=== PATIENT | female | born 1955 ===

== ENCOUNTER 2025-03-08 13:02 | Outpatient (AMB) | payer MEDICARE, MEDICAID, SELFPAY ==
--- OUTSIDE RECORDS SUMMARY | 2025-03-08 13:07 | XMS_ITS | Clinical Summary ---
Author Organization [employer] Address [address] [facility] [address] [place] [address] Care Team Providers Care Car Hostler Name Role Phone Hina Knutson Unavailable Kevin Brown LLD Unavailable [phone] Unavailable Mihai Bustamante MD Primary Care Provider Allergies Active Allergy Reactions Criticality Noted Date Comments Codeine Itching 10/14/2022 Levofloxacin Itching 07/12/2020 sulfa Levaquin Molds & Smuts 08/12/2022 Omeprazole 04/15/2023 Other reaction(s): Mental status/ memory changes Promethazine Other High 07/12/2020 Other reaction(s): Phlebitis Other Reaction(s): Phlebitis Phenergan Phlebitits Seems to be IV only Psyllium Diarrhea 07/12/2020 Metamucil Sulfa Antibiotics Shortness of breath High 0 Other Reaction(s): Hives/Urticaria Medications lamoTRIgine (LaMICtal) 200 MG tablet Take 200 mg by mouth in the morning and 200 mg in the evening. Active aspirin 81 MG EC tablet Take 81 mg by mouth. Active clonazePAM (KlonoPIN) 0.5 MG tablet Take 0.5 mg by mouth in the morning and 0.5 mg in the evening. Active clonazePAM (KlonoPIN) 1 MG tablet 023 Active Riboflavin 400 MG capsule Take 400 mg by mouth in the morning. 023 Active traZODone (Desyrel) 100 MG tablet Active cyanocobalamin (Vitamin B-12) 100 MCG tablet Take 1 tablet by mouth in the morning and 1 tablet at noon and 1 tablet in the evening. Active Banophen 25 MG tablet Take 1 tablet (25 mg) by mouth if needed at bedtime for itching. 30 tablet 023 Active cholecalciferol (Vitamin D-3) 10 MCG (400 UNIT) capsule Take 1 capsule (10 mcg) by mouth in the morning. 30 capsule 11 023 Active ziprasidone (Geodon) 20 MG capsule Take 20 mg by mouth with breakfast and with evening meal. Active magnesium gluconate (Magonate) 500 MG tablet Take 1 tablet (500 mg) by mouth 3 times daily. Hold for diarrhea 90 tablet 11 Active traMADol (Ultram) 50 MG tablet Take 100 mg by mouth as needed in the morning for moderate pain. Active pramipexole (Mirapex) 0.25 MG tablet TAKE 1 & 1/2 TABLETS BY MOUTH DAILY 45 tablet Active pyridoxine (Vitamin B-6) 100 MG tablet Take 0.5 tablets (50 mg) by mouth in the morning. 60 tablet 024 Active Calcium Citrate-Vitamin D (Rapides Calcium/Vitamin D) 200-6.25 MG-MCG tablet TAKE 2 TABLETS BY MOUTH TWICE A DAY 120 tablet Active omeprazole (PriLOSEC) [address] capsuleIndicatio ns:Calculus of gallbladder without cholecystitis without obstruction Take 1 capsule (20 mg) by mouth before breakfast and before evening meal. Do not crush or chew. 60 capsule 11 024 2024 Active tiZANidine (Zanaflex) 4 MG tablet Take 1 tablet (4 mg) by mouth every 8 (eight) hours if needed for muscle spasms (Use with caution, sedating.). 90 tablet 3 024 Active aspirin-acetamin ophen-caffeine (Excedrin Migraine) 250-250-65 MG tabletIndication s:Chronic migraine without aura without status migrainosus, not intractable Take 1-2 tablets by mouth if needed each day for headaches. Max 2 tabs/24 hours. Max 20 tabs/month. 60 tablet 3 024 Active propranolol LA (Inderal LA) 80 MG 24 hr capsuleIndicatio ns:Bipolar 1 disorder (CMS/HCC) Take 1 capsule (80 mg) by mouth 2 times daily. Do not crush, chew, or split. 60 capsule 11 024 2024 Active SUMAtriptan (Imitrex) 6 MG/0.5ML injectionIndicat ions:Chronic migraine without aura without status migrainosus, not intractable Inject 0.5 mL (6 mg) under the skin if needed for migraine. If symptoms persist or return, may repeat dose after 1 hour. Max 2 doses/24 hours, 8 doses/month. Use sparingly. 8 mL 3 025 Active promethazine (Phenergan) 25 MG tabletIndication s:Chronic nausea TAKE ONE TABLET BY MOUTH TWO TIMES A DAY NEEDED FOR NAUSEA OR VOMITING. USE SPARINGLY. DO NOT USE FOR LONGER THAN 48 HOURS AT A TIME 45 tablet 3 025 Active scopolamine (Transderm-Scop) 1 MG/3DAYS patch 72 hour APPLY 1 PATCH TO THE SKIN EVERY 3 DAYS (BULK) 10 patch 3 025 Active venlafaxine XR (Effexor XR) 37.5 MG 24 hr capsule Take 37.5 mg by mouth Once per day. 025 Active Blood Glucose Monitoring Suppl (FreeStyle Lite) deviceIndication s:Type 2 diabetes mellitus with diabetic polyneuropathy, without long-term current use of insulin (CMS/HCC) Inject 1 each under the skin 2 times daily. 1 each 025 Active FREESTYLE LITE test stripIndications :Type 2 diabetes mellitus with diabetic polyneuropathy, without long-term current use of insulin (CMS/HCC) Test BG before and 2 hours after one meal per day, alternating meal. 100 each 025 Active FreeStyle Unistick II Lancets miscIndications: Type 2 diabetes mellitus with diabetic polyneuropathy, without long-term current use of insulin (CMS/HCC) Test before and 2 hours after one meal per day, alternating the meal. 100 each 025 Active levothyroxine (Synthroid, Levoxyl) 150 MCG tabletIndication s:Hypothyroidism , unspecified type Take 1 tablet (150 mcg) by mouth before breakfast. 90 tablet 3 025 2025 Active albuterol 108 (90 Base) MCG/ACT inhalerIndicatio ns:Chronic cough Inhale 2 puffs every 6 (six) hours if needed for wheezing. 18 g 11 025 2025 Active cetirizine (ZyrTEC) 10 MG tablet Take 1.5 tablets (15 mg) by mouth Once per day. 45 tablet 2 Active famotidine (Pepcid) 20 MG tablet Take 1 tablet by mouth at bedtime. Active Methylcobalamin 5000 MCG chewable tabletIndication s:IGT (impaired glucose tolerance) Chew 5,000 mcg Once per day. 90 tablet Active vitamin E 180 MG (400 UNIT) capsule TAKE ONE CAPSULE BY MOUTH THREE TIMES A DAY (VIAL) 84 capsule Active ondansetron (Zofran) 4 MG tablet TAKE ONE TABLET BY MOUTH EVERY 8 HOURS NEEDED FOR NAUSEA OR VOMITING FOR UP TO 7 DAYS (VIAL) 20 tablet Active Ascorbic Acid (vitamin C) 500 MG tabletIndication s:Lack of adequate food TAKE 1 TABLET BY MOUTH 3 TIMES A DAY (VIAL) 84 tablet Active Diclofenac Sodium 1 % gelIndications:S lesvia stenosis, unspecified spinal region Apply 4 g topically 4 times daily. Dispense four tubes 350 g Active montelukast (Singulair) 10 MG tabletIndication s:Allergy, sequela TAKE ONE TABLET BY MOUTH EVERY DAY (VIAL) 30 tablet Active lidocaine (Lidoderm) 5 % patchIndications :Type 2 diabetes mellitus with diabetic polyneuropathy, without long-term current use of insulin ([facility]) APPLY 1 PATCH TOPICALLY ONCE PER DAY. REMOVE AND DISCARD PATCH WITHIN 12 HOURS OR DIRECTED BY 30 patch Active acyclovir (Zovirax) 400 MG tablet TAKE ONE TABLET BY MOUTH TWICE A DAY (VIAL) 60 tablet 3 Active potassium chloride CR (Klor-Con M10) 10 MEQ ER tablet TAKE ONE TABLET BY MOUTH EVERY MORNING (VIAL) 30 tablet 025 Active methylPREDNISolo ne (Medrol Dospak) 4 MG tabletsIndicatio ns:Sprain of right shoulder, unspecified shoulder sprain type, initial encounter Follow schedule on package instructions 21 tablet 025 Active furosemide (Lasix) 20 MG tabletIndication s:Lower extremity edema Take 1 tablet (20 mg) by mouth Once per day for 7 days. 7 tablet 025 Active B Complex-C (b complex-vitamin c) tablet Take 1 tablet by mouth Once per day. Active cholestyramine (Questran) 4 g packet Take 1 packet by mouth with breakfast, with lunch, and with evening meal. Active Colchicine 0.6 MG capsule 1 CAPSULE BY MOUTH DAILY UNTIL ACUTE GOUT FLARE RESOLVES 025 Active colesevelam (Welchol) 625 MG tablet 025 Active spironolactone (Aldactone) 25 MG tabletIndication s:Essential (primary) hypertension TAKE THREE TABLETS BY MOUTH EVERY DAY (VIAL) 90 tablet 3 025 Active Multiple Vitamins-Iron (Tab-A-Flaco/Iron ) tablet TAKE ONE TABLET BY MOUTH EVERY DAY (VIAL) 30 tablet 3 025 Active capsaicin (Zostrix) 0.025 % creamIndications :Spinal stenosis, unspecified spinal region Apply thin film to affected areas 3 to 4 times daily 56.6 g 1 025 Active spironolactone (Aldactone) 25 MG tabletIndication s:Essential (primary) hypertension TAKE THREE TABLETS BY MOUTH EVERY DAY (VIAL) 90 tablet 3 025 2024 Discontinued Multiple Vitamins-Iron (Tab-A-Flaco/Iron ) tablet Take 1 tablet by mouth Once per day. 30 tablet 3 025 2024 Discontinued benzonatate (Tessalon) 100 MG capsule Take 1 capsule (100 mg) by mouth if needed in the morning, at noon, and at bedtime for cough for up to 40 doses. Do not crush or chew. 20 capsule 1 025 2024 Discontinued(D ose adjustment) benzonatate (Tessalon) 200 MG capsuleIndicatio ns:Cough, unspecified type Take 1 capsule (200 mg) by mouth if needed in the morning, at noon, and at bedtime for cough for up to 7 days. Do not crush or chew. 20 capsule 025 2024 Discontinued(R eorder (will not trigger notification to Pharmacy)) benzonatate (Tessalon) 200 MG capsuleIndicatio ns:Cough, unspecified type Take 1 capsule (200 mg) by mouth if needed in the morning, at noon, and at bedtime for cough for up to 7 days. Do not crush or chew. 20 capsule 025 2024 Active Problems Problem Noted Date Diagnosed Date Peripheral edema 02/22/2025 Overview (02/22/2025): ECHO 10/2024: The left ventricular size is normal. The left ventricular wall thickness is mildly increased. The LV systolic function is vigorous . The left ventricular ejection fraction is 70-75%. There are no regional wall motion abnormalities. Normal diastolic function. The right ventricle is normal in size and function. The pulmonary artery systolic pressure estimation is within normal limits. US Doppler Ext Lower Venous Bilat 01/26/25 IMPRESSION: No evidence of deep venous thrombosis. Assessment & Plan (02/22/2025 4:44 PM EDT): Patient with bilateral peripheral edema, recently worsening over the past three weeks. Physical exam significant for 2+ peripheral edema in bilateral lower extremities. Possibly peripheral edema from known kidney disease, also possibly CVS. Less likely CHF recent ECHO only significant for mild increase in left ventricular thickness. Also less likely liver disease since normal lfts during recent hospital visit. Discussed conservative management including leg elevation and compression stockings; however patient strongly prefers not to use compression stockings due fibromyalgia and discomfort. Patient is currently on diuretic therapy, unfortunately, patient does have evidence of ongoing hyponatremia. - Will obtain updated CMP and TSH - Will order Venous duplex ultrasound to investigate CVS - Will continue with leg elevation, can consider lower pressure compression stockings that patient can tolerate - Suggesting discontinuing the Lasix at this time due to the ongoing hyponatremia Spinal stenosis 02/22/2025 Overview (02/22/2025): MRI lumbar spine 04/11/24: degenerative changes are most pronounced at L5-S1, with progression of disc space narrowing at this level since 2020. There is mild canal stenosis at this level as well as narrowing of both neural foramen, right worse than left. Mild disc space narrowing is also seen at L4-5. Assessment & Plan (02/22/2025 4:57 PM EDT): Patient reports ongoing lower back and BLE discomfort. Patient is in the process of becoming established with pain medicine and has follow up appointment scheduled with [facility]. Patient is advised not to take NSAIDs secondary to CKD. Also discussed avoidance of any other [employer] depressants like Gabapentin due to polypharmacy. Patient is established with psychiatry provider, recently increased venlafaxine, which we discussed can be helpful for neuropathic pain. - Will also send in topical capsaicin - Continue plan to see [facility] Diarrhea 01/25/2025 Excessive daytime sleepiness 01/25/2025 Nausea 01/25/2025 RUQ pain 01/25/2025 Gout 01/25/2025 Hypo-osmolality and hyponatremia 01/23/2025 Overview (02/22/2025): Past three recent CMP demonstrated Na levels around 130. Based upon recent BUN and glucose, serum osm 273 mOsm/kg Assessment & Plan (02/22/2025 4:50 PM EDT): Patient is on multiple medications including furosemide, spironolactone and venlafaxine that could lead to hypnoatremia. Discussed in detail sxs of hyponatremia including nausea, vomiting, headache, confusion, and other cognitive defects. Patient reports she has been on diuretic therapy due to ongoing peripheral edema. - Consider trial of stopping Lasix and monitor sodium levels. - If sodium does not improve, consider stopping spironolactone. - No signs of hypovolemia, if sodium levels remain low, would suggest obtaining urine sodium and urine osmolality Counseling on health care directive 05/31/2024 Assessment & Plan (06/13/2024 6:17 PM EDT): - Previous healthcare form proxy completed by patient, myself and nursing staff. Today in office, we reviewed in detail MOLST form and completed it according to patient's wishes and goals. Discussed in detail that patient should share these goals with HCP. Discussed in detail the process of changing a MOLST form in the event their values or goals change. Patient expressed understanding and is in agreement with plan Assessment & Plan (05/31/2024 3:36 PM EDT): - Patient presented a healthcare proxy form for signing, which was completed by patient, myself and one of the nursing staff. - Patient had question regarding end of life goals. Reviewed in detail MOLST form. Provided for patient to review at home with herself and health care proxy. Will review together and complete together at a later date. Disassociation 01/06/2024 Assessment & Plan (01/06/2024 1:58 PM EDT): Patient reports episodes of disassociation most recently on 12/29/23. Patient is currently established with psychiatry, sleep medicine, neurology and therapy. Physical exam benign, no neurological deficits. Uncertain if this is organic, psychiatric, sleep disorder or polypharmacy cause. Consulted patient to follow up immediately with psychiatry and neurology for further evaluation. - Will continue to monitor Microalbuminuria 10/06/2023 Severe episode of recurrent major depressive disorder, with psychotic features 08/05/2023 Assessment & Plan (05/31/2024 3:39 PM EDT): - Patient established wit psychiatry, reports recent increase in panic attacks in the past two weeks, has discontinued trazodone to see if effective. - Will continue to follow with psych. Assessment & Plan (08/05/2023 1:14 PM EST): Encouraged to continue to follow up with her psychiatrist. She understood and agreed. Chronic pain of both feet 04/20/2023 Assessment & Plan (04/20/2023 3:57 PM EDT): We discussed how her pain is not likely to be gout and how colchicine would not help her. She will continue to follow up with her documentation writer. Bipolar disorder 04/15/2023 Overview (01/06/2024): with PTSD - sees Dr. Jerome Kaur at [facility] and therapist uli luo weekly. 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 Lau, sleep medicine Assessment & Plan (01/06/2024 1:04 PM EDT): Patient has previously been using CPAP, has not used in over a year. - Not currently interested in restarting CPAP. Occipital neuralgia 04/15/2023 Parasomnia 04/15/2023 Pulmonary nodules 04/15/2023 Restless legs syndrome 04/15/2023 Hair loss disorder 03/12/2023 Assessment & Plan (03/22/2023 3:25 PM EDT): Chronic, stable. Likely multifactorial - labs previously ordered to assess thyroid, vitamins/minerals, awaiting results. Deferring treatment at this time until clearer sense of cause. Current mild episode of leeroy r depressive disorder without prior episode 03/12/2023 Vitamin C deficiency 03/12/2023 Lack of adequate food 03/12/2023 Chronic tension-type headache, not intractable 0 12/25/2022 Apnea 12/25/2022 Forgetfulness 12/25/2022 Hoarseness, persistent 11/27/2022 Chronic cough 11/27/2022 Assessment & Plan (08/05/2023 1:12 PM EST): Continue with current regimen. Cystitis 11/24/2022 Urine frequency 11/24/2022 Dental caries 09/07/2022 Anemia 08/12/2022 Calculus of kidney 08/12/2022 Secondary hyperparathyroidism of renal origin Dyspnea on exertion 06/30/2022 Localized edema 06/30/2022 Essential (primary) hypertension 05/05/2022 Assessment & Plan (01/06/2024 1:07 PM EDT): Clinically benefiting from current med regimen, taking as prescribed and tolerating well with no side effects. Continue as is and will continue to monitor. Heart palpitations 04/30/2022 Pure hypercholesterolemia 10/31/2020 Hypothyroidism 08/19/2020 Assessment & Plan (01/06/2024 1:57 PM EDT): Recent TSH 2.11 WNL. Will obtain updated levels in three months. Assessment & Plan (09/09/2023 3:53 PM EST): Needs follow up TSH. Continue with current regimen. Osteoporosis 08/19/2020 Vitamin D deficiency 07/16/2020 Hyperlipidemia 07/16/2020 Type 2 diabetes mellitus with diabetic polyneuro damaso 07/16/2020 Assessment & Plan (01/30/2025 4:41 PM EDT): Try to add in more exercise, adding in weight/strength/ resistance training to help with glucose utilization, strength, power and stability. Call as needed for future support and education. Keep up good job! Assessment & Plan (01/06/2024 1:58 PM EDT): Will obtain updated labs. Assessment & Plan (09/09/2023 3:49 PM EST): Well controlled, continue with current regimen. Assessment & Plan (05/25/2023 3:59 PM EDT): Does not want pharmacotherapy. Will try diet and exercise. Chronic renal failure, stage 3b 07/12/2020 Assessment & Plan (01/06/2024 1:08 PM EDT): Will order updated CMP, vitamin D, mag, phos Assessment & Plan (04/15/2023 4:59 PM EDT): Continue with monitoring. Encounters Date Type Department Care Team Description 03/08/[address] [phone] Mihai Bustamante MD 03/07/[address] [address] Mihai Bustamante MD 02/26/2025 Results Follow-Up [address] [address] Taras Phillips PA-C TSH with Reflex to Free T4, Basic Metabolic Panel, Iron, TIBC And Ferritin Panel, T4, Free 02/26/[address] [address] Elham Judge LPN 02/23/[address] [address] Mihai Bustamante MD Cough, unspecified type 02/22/2025 4:00 PM EDT Office Visit [address] [address] Taras Phillips PA-C Peripheral edema (Primary Dx); Screening for iron deficiency anemia; Spinal stenosis, unspecified spinal region; Hypo-osmolality and hyponatremia 02/21/[address] [address] [facility] - Transportation Assistance 02/20/[address] [address] Mihai Bustamante MD 02/19/2025 10:00 AM EDT Clinical Support [address] [address] [facility] 02/19/[address] [address] Mihai Bustamante MD 02/16/2025 9:30 AM EDT Community Care Management [facility] [address] [address] Hina Knutson 02/16/[address] [address] Mihai Bustamante MD 02/15/2025 Orders Only [address] [address] Mihai Bustamante MD Cough, unspecified type (Primary Dx) 02/14/2025 1:30 PM EDT Community Care Management [facility] [address] [address] Kemi Bunn 02/14/[address] [address] Mihai Bustamante MD 02/14/[address] [address] Mihai Bustamante MD 02/13/[address] [address] Mihai Bustamante MD 02/13/[address] [address] Mihai Bustamante MD 02/12/[address] [address] Mihai Bustamante MD 02/09/[address] [address] Mihai Bustamante MD 02/09/[address] [address] Mihai Bustamante MD 02/08/[address] [address] Mihai Bustamante MD Essential (primary) hypertension 02/08/[address] [address] Mihai Bustamante MD 02/08/[address] [address] Mihai Bustamante MD 02/07/[address] [address] Mihai Bustamante MD 02/05/[address] [address] Mihai Bustamante MD 02/05/[address] [address] Mihai Bustamante MD 02/02/[address] [address] Mihai Bustamante MD 02/01/2025 Orders Only [address] [address] Mihai Bustamante MD Lower extremity edema (Primary Dx) 02/01/2025 Results Follow-Up [address] [address] Mihai Bustamante MD Basic Metabolic Panel 01/31/[address] [address] Kemi Carter FNP Lower extremity edema 01/31/[address] [address] Mihai Bustamante MD 01/31/[address] [phone] Mihai Bustamante MD 01/30/2025 3:00 PM EDT Clinical Support [address] [address] Katie Valdivia, ADÁN Type 2 diabetes mellitus with diabetic polyneuropathy, without long-term current use of insulin ([facility]) 01/30/2025 9:30 AM EDT Clinical Support [address] [address] [facility] 01/30/2025 8:30 AM EDT Community Care Management [facility] [address] [address] Hina Knutson 01/30/[address] [phone] Lynne Gutierrez, RN Care Coordination (Possible CM referral) 01/30/[address] [address] [facility] - Application Assistance 01/29/2025 12:40 PM EDT Office Visit [address] [phone] Mihai Bustamante MD Lumbar foraminal stenosis (Primary Dx); Chronic kidney disease, unspecified CKD stage; Polypharmacy 01/26/2025 2:30 PM EDT Community Care Management [facility] [address] [address] Kemi Bunn 01/26/[address] [phone] Mihai Bustamante MD 01/25/2025 1:45 PM EDT Office Visit [address] [phone] Kevin Brown LLD 01/23/2025 11:30 AM EDT Community Care Management [facility] [address] [address] Kemi Bunn 01/23/2025 Orders Only [address] [address] Mihai Bustamante MD Arthritis (Primary Dx) 01/23/2025 Orders Only [address] [address] Mihai Bustamante MD Chronic kidney disease, unspecified CKD stage (Primary Dx) 01/19/2025 Telephone [facility] [address] [address] Mihai Bustamante MD 01/19/2025 Telephone [facility] [address] [address] Mihai Bustamante MD 01/18/2025 Telephone [facility] [address] [address] Mihai Bustamante MD 01/16/[address] [address] May Sung LPN Lower extremity edema 01/16/[address] [address] Mihai Bustamante MD 01/15/2025 8:30 AM EDT Community Care Management [facility] [address] [address] Hina Knutson 01/15/[address] [address] Mihai Bustamante MD 01/13/2025 11:00 AM EDT Office Visit [address] [address] Kemi Carter FNP Sprain of right shoulder, unspecified shoulder sprain type, initial encounter (Primary Dx); Lower extremity edema 01/13/[address] [address] Kemi Carter FNP 01/12/[address] [address] Mihai Bustamante MD 01/10/2025 10:30 AM EDT Community Care Management [address] [address] Kemi Bunn 01/10/[address] [address] Mihai Bustamante MD Allergy, sequela; Type 2 diabetes mellitus with diabetic polyneuropathy, without long-term current use of insulin ([facility]) 01/10/[address] [address] Mihai Bustamante MD 01/08/2025 Patient Outreach [address] [address] Ana M Contreras LPN ER Follow-up 01/04/[address] [address] Mihai Bustamante MD 01/03/[address] [facility] Information Management [address] [place] [id number] Provider, Not In System 01/01/[address] [place] [address] Mihai Bustamante MD 01/01/2025 Telephone [facility] [address] [facility] [address] [place] [address] Mihai Bustamante MD 01/01/2025 Patient Outreach [facility] 119 [facility] [address] [place] [address] Kemi Bunn 12/25/2024 2:40 PM EDT Office Visit [address] [address] Mihai Bustamante MD Rhinorrhea (Primary Dx); Spinal stenosis, unspecified spinal region 12/21/2024 2:15 PM EDT Office Visit [address] [address] Ramsey Robles, [facility] 12/21/2024 Orders Only [address] [address] Mihai Bustamante MD Type 2 diabetes mellitus with diabetic polyneuropathy, without long-term current use of insulin ([facility]) (Primary Dx) 12/20/[address] [address] Mihai Bustamante MD 12/20/[address] [address] Mihai Bustamante MD 12/20/[address] [address] Mihai Bustamante MD 12/18/[address] [place] [address] Mihai Bustamante MD 12/18/[address] [address] Mihai Bustamante MD Lack of adequate food 12/15/2024 Refill [facility] [address] [address] Mihai Bustamante MD 12/13/[address] [facility] Information Management [address] [place] [phone] Provider, Not In System 12/13/[address] [address] Mihai Bustamante MD 12/11/2024 2:20 PM EDT Office Visit [address] [phone] Mihai Bustamante MD IGT (impaired glucose tolerance) (Primary Dx); Chronic cough; Coordination abnormal; Cognitive impairment 12/07/[address] [address] Mihai Bustamante MD from Last 3 Months Immunizations Immunization Administration Dates Next Due Influenza Whole 06/19/2010 Influenza injectable quadriv alent preservative free 04/29/2016 Influenza, High Dose Seasona l, Preservative Free 05/23/2018 Influenza, IIV3, injectable 09/20/2019,0 05/23/2018,06/13/2017,06/02,05/15/2016,04/29/2016,05/30/2015 ,06/01/2014,07/31/2013,08/05/2012,05/31,10/10/2008 Influenza, seasonal, injecta ble, preservative free 06/02/2017 Pneumococcal Conjugate PCV 13 04/21/2018 Pneumococcal Polysaccharide PPSV23 06/01/2014, Tdap 06/01/2022,07/14/2012 Zoster, live 12/30/2015 Family History Medical History Relation Name Comments Brain Aneurysm Father Cancer Mother Heart disease Paternal Grandfather Relation Name Status Comments Father Mother Paternal Grandfather Social History Tobacco Use Types Packs/Day Years Used Date Smoking Tobacco: Former Cigarettes 0.5 37 Passive Smoke Exposure: Never Smokeless Tobacco: Never Tobacco Cessation:Counseling Given: Not Answered Alcohol Use Standard Drinks/Week Comments Not Currently 0 (1 standard drink = 0.6 oz pure alcohol) Has not had alcohol beverage 5 years ago Alcohol Answer Date Recorded How often do you have a drink containing alcohol ? 0 07/27/2023 How many drinks containing a lcohol do you have on a typical day when you are drinking? 0 07/27/2023 How often do you have six or more drinks on one occasion? 0 07/27/2023 Depression Answer Date Recorded Patient Health Questionnaire-9 Score 0 08/05/2023 Patient Health Questionnaire-9 Score 0 08/05/2023 Last PHQ-9: Questionnaire Data Not on file 1 10/06/2022 Housing Stability Answer Date Recorded What is your housing situation today? I have jhony taveras 12/08/[address] you li ve. Do you have problems with any of the following? Lead Rabbit Hash or Pipes 12/08/2023 Food Insecurity Answer Date Recorded Within the past 12 months, y ou worried that your food would run out before you got money to buy more: Never True 07/27/2023 Within the past 12 months,th e food you bought just didn't last and you didn't have enough money to get more: Never True Transportation Answer Date Recorded In the past 12 months, has l ack of transportation kept you from medical appts, meetings, work or from getting things needed for daily living? No 07/27/2023 Intimate Partner Violence Answer Date R ecorded Within the last year, have y ou been afraid of your partner or ex-partner? 2 07/27/2023 Within the last year, have y ou been humiliated or emotionally abused in other ways by your partner or ex-partner? 2 Within the last year, have y ou been kicked, hit, slapped, or otherwise physically hurt by your partner or ex-partner? 2 07/27/2023 Within the last year, have y ou been raped or forced to have any kind of sexual activity by your partner or ex-partner? 2 07/27/2023 Utilities Answer Date Recorded In the past 12 months, has t he electric, gas, oil or water company threatened to shut off services in your home? No 07/27/2023 Depression Answer Date Recorded Patient Health Questionnaire-2 Score 0 08/05/2023 Internet Access Answer Date Recorded Internet Access Q1 Yes 05/17/2024 Internet Access Q2 Not on file 05/17/2024 Comments Unknown Sex and Gender Information Value Date Recorded Sex Assigned at Female 08/25/2022 1:43 PM EST Legal Sex Female 8:38 PM EST Gender Identity Female 07/10/2022 8:38 PM EST Sexual Orientation Choose not to disclose 2021 8:38 PM EST Occupation Industry Job Start Date Job End Date Not currently Not on file Not on file Not on file Last Filed Vital Signs Vital Sign Reading Time Taken Comments Blood Pressure 112/64 02/22/2025 4:07 PM EDT Pulse 88 02/22/2025 4:07 PM EDT Temperature 36.1 C (96.9 F) 01/29/2025 12:47 PM EDT Respiratory Rate - - Oxygen Saturation 94% 02/22/2025 4:07 PM EDT Inhaled Oxygen Concentration - - Weight 101 kg (223 lb) 01/29/2025 12:47 PM EDT Height 168.9 cm (5' 6.5 ) 12/31/2022 4:37 PM EDT Body Mass Index 35.45 12/31/2022 4:37 PM EDT Plan of Treatment Upcoming Encounters Date Type Department Care Team (Late st Contact Info) Description 03/14/2025 3:40 PM EDT Office Visit [facility] [address] [place] [phone] Mihai Bustamante MD [address] [place] [phone] 04/02/2025 2:45 PM EDT Office Visit [facility] [address] [place] [phone] Kevin Brown LLD [address] [place] [phone] 06/26/2025 2:30 PM EDT Office Visit [facility] [address] [place] [address] Ramsey Robles, RD [address] [place] [address] Health Maintenance Due Date Last Done Comments CT Colonography 1953 FIT DNA/Cologuard 1953 FIT 1953 FOBT 1955 Sigmoidoscopy 1953 Alcohol/Substance Use Screening 1965 RSV Patients and Patients Aged 60 years or older (1 - Risk 60-74 years 1-dose series) 2013 Zoster Vaccines (2 of 3) 02/24/2016 12/30/2015 Pneumococcal Vaccine: 50+ Years (3 of 3 - PCV20 or PCV21) 04/21/2023 04/21/2018, 06/01/2014, 10/08/2008 Dental X-Ray: Bitewings 10/09/2023 10/08/19, 01/02/2019, 05/25/2016, Additional history exists Dental Oral Exam 01/25/2024 07/26/2023, 04/2023, 04/21/2022, Additional history exists Diabetes: Foot Exam 04/20/2024 04/20/2023 COVID-19 Vaccine ( season) 2024 01/17/2021, 12/20/2020 Depression Screening 08/05/2024 08/05/2023, 08/05/20 23 SDOH Screening 12/07/2024 12/08/2023 Mammogram 02/24/2025 02/24/2023, 01/29, 12/30/2021 Influenza Vaccine (#1) 2025 0, 09/20/2019, 05/23/2018, Additional history exists Diabetes: Hemoglobin A1C 06/07/2025 025, 11/02/2024, 06/13/2024, Additional history exists Diabetes: Urine Protein Screening 06/13/2025 06/13/2024, 09/09/2023, 09/09/2023, Additional history exists Dental Prophylaxis 06/23/2025 12/21/2024, 0 04/06/2024, 09/10/2023, Additional history exists Dental X-Ray: Full Mouth 10/09/2025 023, 09/03/2022, 09/14/2019, Additional history exists Lipid Panel 11/02/2025 11/02/2024, 04/02/2023 Tobacco Screening 02/22/2026 02/22/2025 Eye Exam 01/02/2027 01/02/2025, 10/30/2022 Colonoscopy 03/28/2028 03/28/2018 Colorectal Cancer Screening 03/28/2028 DTaP/Tdap/Td Vaccines (3 - Td or Tdap) 06/01/2032 06/01/2022, 07/14/2012 Hepatitis C Screening Completed 05/20/2022 HIB Vaccines Aged Out No longer eligi ble based on patient's age to complete this topic HPV Vaccines Aged Out No longer eligi ble based on patient's age to complete this topic Hepatitis A Vaccines Aged Out No long er eligible based on patient's age to complete this topic Hepatitis B Vaccines Aged Out No long er eligible based on patient's age to complete this topic IPV Vaccines Aged Out No longer eligi ble based on patient's age to complete this topic Meningococcal B Vaccine Aged Out No l onger eligible based on patient's age to complete this topic Meningococcal Vaccine Aged Out No amber herbert eligible based on patient's age to complete this topic RSV under 20 months Aged Out No longe r eligible based on patient's age to complete this topic Rotavirus Vaccines Aged Out No longer eligible based on patient's age to complete this topic Procedures Procedure Name Priority Date/Time Associated Diagnosis Comments T4, FREE Routine 02/22/2025 4:43 PM EDT IRON, TIBC AND FERRITIN PANEL Routine 02/22/2025 4:43 PM EDT BASIC METABOLIC PANEL Routine 02/22/2025 4:43 PM EDT Peripheral edema TSH W/REFLEX TO FT4 Routine 02/22/2025 4 :43 PM EDT Peripheral edema BASIC METABOLIC PANEL Routine 01/29/2025 2:03 PM EDT Lumbar foraminal stenosis Chronic kidney disease, unspecified CKD stage REFLEXIVE URINE CULTURE Routine 01/29/2025 2:02 PM EDT URINALYSIS, COMPLETE, WITH REFLEX TO CULTURE Routine 01/29/2025 2:02 PM EDT Arthritis SONIA SCREEN, IFA, W/REFL TITER AND PATTERN Routine 01/29/2025 2:01 PM EDT Neuropathy IMMUNOFIXATION IGA,IGG,IGM QT.IMMUNOFIXATION SERUM IMMUNOGLOBULIN Routine 01/29/2025 2:01 PM EDT Neuropathy VITAMIN B6 Routine 01/29/2025 2:01 PM EDT Neuropathy Anemia, unspecified type VITAMIN B2 (RIBOFLAVIN), PLASMA Routine 01/29/2025 2:01 PM EDT Neuropathy Anemia, unspecified type 28 DO RESIN-BASED COMPOSITE - 2 SURF, POSTERIOR Routine 01/25/2025 1:45 PM EDT CASE PRESENTATION, DETAILED AND EXTENSIVE TREATMENT PLANNING Routine 01/25/2025 1:45 PM EDT HM DIABETES EYE EXAM Routine 01/02/2025 8:53 AM EDT COMPREHENSIVE PERIODONTAL EVALUATION - NEW OR ESTABLISHED PATIENT Routine 12/21/2024 2:15 PM EDT CASE PRESENTATION, DETAILED AND EXTENSIVE TREATMENT PLANNING Routine 12/21/2024 2:15 PM EDT PROPHYLAXIS - ADULT Routine 12/21/2024 2 :15 PM EDT HEMOGLOBIN A1C Routine 12/06/2024 3:08 PM EDT Type 2 diabetes mellitus with other specified complication, unspecified whether prison insulin use (CMS/HCC) LIPID PANEL WITH REFLEX TO DIRECT LDL Routine 11/02/2024 1:36 PM EST Type 2 diabetes mellitus with other specified complication, unspecified whether prison insulin use (CMS/HCC) ALBUMIN, RANDOM URINE W/CREATININE Routine 06/13/2024 4:29 PM EDT Type 2 diabetes mellitus with other specified complication, 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 (CMS/HCC) Chronic kidney disease, unspecified CKD stage PERIODIC ORAL EVALUATION - ESTABLISHED PATIENT Routine 07/26/2023 2:10 PM EST BI MAMMOGRAM SCREENING TOMOSYNTHESIS BILATERAL Routine 02/24/2023 1:18 PM EDT INTRAORAL - COMPLETE SERIES OF RADIOGRAPHIC IMAGES Routine 10/08/2022 1:10 PM EST HM HEPATITIS C ANTIBODY Routine 05/20/2022 HM COLONOSCOPY Routine 03/28/2018 10:36 AM EDT from Last 3 Months or Most Recently Relevant to Health Maintenance Results * (ABNORMAL) TSH with Reflex to Free T4 (02/22/2025 4:43 PM EDT) TSH w/Reflex to FT4 7.91(H) 0.40 - 4.50 mIU/L [facility] Blood Venous blood specimen / Unknown 02/22/2025 4:43 PM EDT 02/22/2025 4:44 PM EDT Narrative [facility] - 02/24/2025 10:59 AM EDT FASTING:NO FASTING: NO Taras Phillips PA-C LAB BLOOD ORDERABLES Final Res ult [facility] [address], [place] [address] [facility] [place] [facility] [address] [place] [address] * (ABNORMAL) Iron, TIBC And Ferritin Panel (02/22/2025 4:43 PM EDT) Iron, Total 49 45 - 160 mcg/dL [facility] [place] [facility] Iron Binding Capacity 407 250 - 450 mcg/dL (calc) [facility] [place] [facility] % Saturation 12(L) 16 - 45 % (calc) [facility] Ferritin 46 16 - 288 ng/mL [facility] [place] [facility] 02/22/2025 4:43 PM EDT 02/22/2025 4:44 PM EDT Narrative [facility] - 02/24/2025 10:59 AM EDT FASTING:NO FASTING: NO [facility] PA-C LAB BLOOD ORDERABLES Final Res ult Performing Organization Address [facility] de Phone Number [facility] [address] [place] [address], [facility] [place] [address] [facility] [address] [place] [address] * T4, Free (02/22/2025 4:43 PM EDT) T4, Free 1.3 0.8 - 1.8 ng/dL [facility] 02/22/2025 4:43 PM EDT 02/22/2025 4:44 PM EDT Narrative [facility] - 02/24/2025 10:59 AM EDT FASTING:NO FASTING: NO [facility] LAB BLOOD ORDERABLES Final Res ult Performing Organization Address [facility] de Phone Number [facility] [address] [place] [address], [place] [address] [facility] [address] [place] [phone] * (ABNORMAL) Basic Metabolic Panel (02/22/2025 4:43 PM EDT) Only the most recent of2 resultswithin the time period is included. Glucose 188(H) 65 - 139 mg/dL [facility] Comment: Non-fasting reference interval Urea Nitrogen (BUN) 26(H) 7 - 25 mg/dL [facility] [place] [facility] Creatinine, Serum 1.69(H) 0.60 - 1.00 mg/dL [facility] [place] [facility] eGFR 32(L) > OR = 60 mL/min/1. 73m2 [facility] [place] [facility] BUN/Creatinine Ratio 15 6 - 22 (calc) [facility] Sodium 137 135 - 146 mmol/L [facility] Potassium 4.8 3.5 - 5.3 mmol/L [facility] Chloride 95(L) 98 - 110 mmol/L [facility] Carbon Dioxide 31 20 - 32 mmol/L [facility] Calcium 9.8 8.6 - 10.4 mg/dL [facility] Blood Venous blood specimen / Unknown 02/22/2025 4:43 PM EDT 02/22/2025 4:44 PM EDT Narrative [facility] - 02/24/2025 10:59 AM EDT FASTING:NO FASTING: NO Taras Phillips PA-C LAB BLOOD ORDERABLES Final Res ult Performing Organization Address City/[facility]/ZIP Co de Phone Number [address], [place] [address] [facility] [address] [place] [phone] * Reflexive Urine Culture (01/29/2025 2:02 PM EDT) REFLEXIVE URINE CULTURE [facility] Comment:NO CULTURE INDICATED 01/29/2025 2:02 PM EDT 01/29/2025 2:02 PM EDT Mihai Bustamante MD HISTORICAL/NON ORDERABLE LAB S Final Result Performing Organization Address [facility] de Phone Number [address], [facility] [place] [address] [facility] [address] [place] [phone] * Urinalysis, Complete, with Reflex to Culture (01/29/2025 2:02 PM EDT) Color YELLOW YELLOW [facility] Appearance CLEAR CLEAR [facility] Specific [place] 1.007 1.001 - 1.035 [facility] pH, Urine 8.0 5.0 - 8.0 [facility] Glucose, Urine NEGATIVE NEGATIVE [facility] Bilirubin,Urin e NEGATIVE NEGATIVE [facility] Ketones,Urine NEGATIVE NEGATIVE [facility] Occult Blood,Urine NEGATIVE NEGATIVE [facility] Protein,Urine NEGATIVE NEGATIVE [facility] Nitrite NEGATIVE NEGATIVE [facility] Leukocyte Esterase NEGATIVE NEGATIVE [facility] WBC, UA NONE SEEN < OR = 5 /HPF [facility] RBC, UA NONE SEEN < OR = 2 /HPF [facility] Squamous Epithelial Cells NONE SEEN < OR = 5 /HPF [facility] Bacteria NONE SEEN NONE SEEN /HPF [facility] Hyaline Cast NONE SEEN NONE SEEN /LPF [facility] Note [facility] Comment: This urine was analyzed for the presence of WBC, RBC, bacteria, casts, and other formed elements. Only those elements seen were reported. Urine 01/29/2025 2:02 PM EDT 01/29/2025 2:02 PM EDT Mihai Bustamante MD LAB URINE ORDERABLES Final R esult [facility] [address], [place] [address] [facility] [address] [place] [address] * Vitamin B2 (Riboflavin) (01/29/2025 2:01 PM EDT) Vitamin B2 (Riboflavin) 31.4 6.2 - 39.0 nmol/L [facility] Comment: Vitamin supplementation within 24 hours prior to blood draw may affect the accuracy of results. This test was developed and its analytical performance characteristics have been determined by [facility] [place]. It has not been cleared or approved by the FDA. This assay has been validated pursuant to the CLIA regulations and is used for clinical purposes. Blood 01/29/2025 2:01 PM EDT 01/29/2025 2:01 PM EDT Narrative [facility] - 02/02/2025 4:24 PM EDT SPLIT 06/13/2024 FROM [id number] Mihai Bustamante MD LAB BLOOD ORDERABLES Final R esult Performing Organization Address [facility]/ZIP Co de Phone Number [facility] [address] [place] [address], [place] [address] [facility] [address] [place] [address] * (ABNORMAL) Immunofixation (JENIFFER) and Immunoglobulins Panel (IgG, IgA, IgM), Serum (01/29/2025 2:01 PM EDT) Pathologist [facility] JENIFFER Interpretation Q [facility] [place] [facility] Comment: Normal pattern. No monoclonal proteins detected. Immunoglobulin A, Qn, Serum 218 70 - 320 mg/dL [facility] Immunoglobulin G 752 600 - 1,540 mg/dL [facility] Immunoglobulin M 40(L) 50 - 300 mg/dL [facility] [place] [facility] 01/29/2025 2:01 PM EDT 01/29/2025 2:01 PM EDT Narrative [facility] - 02/02/2025 4:24 PM EDT SPLIT 06/13/2024 FROM [id number] Mihai Bustamante MD LAB BLOOD ORDERABLES Final R esult Performing Organization Address [facility] de Phone Number [address], [place] [address] [facility] [place] [facility] [address] [place] [phone] * SONIA Screen,IFA, with Reflex to Titer and Pattern (01/29/2025 2:01 PM EDT) SONIA Screen, IFA NEGATIVE NEGATIVE [facility] [place] [facility] Comment: SONIA IFA is a first line screen for detecting the presence of up to approximately 150 autoantibodies in various autoimmune diseases. A negative SONIA IFA result suggests an SONIA-associated autoimmune disease is not present at this time, but is not definitive. If there is high clinical suspicion for Sjogren's syndrome, testing for anti-SS-A/Ro antibody should be considered. Anti-Violeta-1 antibody should be considered for clinically suspected inflammatory myopathies. AC-0: Negative International Consensus on SONIA Patterns (https://doi.org/10.1515/ptsl-1239-3959) For additional information, please refer to http://education.[employer]/faq/QVO078 (This link is being provided for informational/ educational purposes only.) Blood Venous blood specimen / Unknown 01/29/2025 2:01 PM EDT 01/29/2025 2:01 PM EDT Narrative [facility] - 02/02/2025 4:24 PM EDT SPLIT 06/13/2024 FROM [id number] us Mihai Bustamante MD LAB BLOOD ORDERABLES Final R esult [facility] [address] [place] [address], [place] [address] [facility] [address] [place] [address] * (ABNORMAL) Vitamin B6 (01/29/2025 2:01 PM EDT) [facility] Vitamin B6, Plasma 79.0(H) 2.1 - 21.7 ng/mL [facility] Comment: Vitamin supplementation within 24 hours prior to blood draw may affect the accuracy of the results. This test was developed and its analytical performance characteristics have been determined by [facility] [place], [place]. It has not been cleared or approved by the U.S. Food and Drug Administration. This assay has been validated pursuant to the CLIA regulations and is used for clinical purposes. Blood Venous blood specimen / Unknown 01/29/2025 2:01 PM EDT 01/29/2025 2:01 PM EDT Narrative [facility] - 02/02/2025 4:24 PM EDT SPLIT 06/13/2024 FROM [id number] us Mihai Bustamante MD LAB BLOOD ORDERABLES Final R esult Performing Organization Address [facility] Co de Phone Number [facility] [address], [facility] [place] [address] [facility] [address] [place] [address] * Hm Diabetes Eye Exam (01/02/2025 8:53 AM EDT) Not In System Provider HEALTH MAINTENANCE Edited Result - Final * (ABNORMAL) Hemoglobin A1c (12/06/2024 3:08 PM EDT) Hemoglobin A1c 6.2(H) <5.7 % of total Hgb [facility] [place] [facility] Comment: For someone without known diabetes, a hemoglobin A1c value between 5.7% and 6.4% is consistent with prediabetes and should be confirmed with a follow-up test. For someone with known diabetes, a value <7% indicates that their diabetes is well controlled. A1c targets should be individualized based on duration of diabetes, age, comorbid conditions, and other considerations. This assay result is consistent with an increased risk of diabetes. Currently, no consensus exists regarding use of hemoglobin A1c for diagnosis of diabetes for children. Blood Venous blood specimen / Unknown 12/06/2024 3:08 PM EDT 12/06/2024 3:09 PM EDT Narrative [facility] - 12/09/2024 10:59 AM EDT FASTING:NO FASTING: NO Mihai Bustamante MD LAB BLOOD ORDERABLES Final R esult Performing Organization Address City/[facility]/ZIP Co de Phone Number [facility] [address], [place] [address] [facility] [place] [facility] [address] [place] [address] * (ABNORMAL) Lipid Panel with Reflex to Direct LDL (11/02/2024 1:36 PM EST) Cholesterol, Total 257(H) <200 mg/dL [facility] HDL Cholesterol 51 > OR = 50 mg/dL [facility] Triglycerides 346(H) <150 mg/dL [facility] Comment: If a non-fasting specimen was collected, consider repeat triglyceride testing on a fasting specimen if clinically indicated. Liliana et al. J. of Clin. Lipidol. 2015;9:129-169. LDL Cholesterol 153(H) mg/dL [facility] Comment: Reference range: <100 Desirable range <100 mg/dL for primary prevention; <70 mg/dL for patients with CHD or diabetic patients with > or = 2 CHD risk factors. LDL-C is now calculated using the Katheryn calculation, which is a validated novel method providing better accuracy than the Friedewald equation in the estimation of LDL-C. Neri SS et al. DENY. 2013;310(19): 8163-1909 (http://education.[employer]/faq/QWZ282) Chol/HDLC Ratio 5.0(H) <5.0 (calc) [facility] Non-HDL Cholesterol 206(H) <130 mg/dL [facility] Comment: For patients with diabetes plus 1 major ASCVD risk factor, treating to a non-HDL-C goal of <100 mg/dL (LDL-C of <70 mg/dL) is considered a therapeutic option. Blood 11/02/2024 1:36 PM EST 11/02/2024 1:36 PM EST Narrative [facility] - 11/03/2024 1:53 PM EST FASTING:NO PATIENT UNABLE TO VOID; ADVISED TO RETURN FOR COLLECTION. FASTING: NO Mihai Bustamante MD LAB BLOOD ORDERABLES Final R esult [facility] [address], [place] [address] [facility] [address] [place] [address] * (ABNORMAL) Albumin, Random Urine W/Creatinine (06/13/2024 4:29 PM EDT) Creatinine, Random Urine 94 20 - 275 mg/dL [facility] Albumin, Urine 13.4 See Note: mg/dL [facility] Comment: Reference Range: Reference Range Not established Albumin/Creatinin e Ratio, Random Urine 143(H) <30 mg/g creat [facility] Comment: The ADA defines abnormalities in albumin excretion as follows: Albuminuria Category Result (mg/g creatinine) Normal to Mildly increased <30 Moderately increased 30-299 Severely increased > OR = 300 The ADA recommends that at least two of three specimens collected within a 3-6 month period be abnormal before considering a patient to be within a diagnostic category. Urine (Urine, Random) 06/13/2024 4:29 PM EDT 06/13/2024 4:32 PM EDT Narrative [facility] - 06/22/2024 1:34 AM EDT FASTING:NO COLLECTION REQUIREMENTS NOT MET. PATIENT ADVISED TO RETURN. FASTING: NO us Mihai Bustamante MD LAB URINE ORDERABLES Final R esult [facility] [address], [place] [address] [facility] [employer] [place] [facility] [address] [place] [address] * BI Mammogram Screening Tomosynthesis Bilateral (02/24/2023 1:18 PM EDT) Anatomical Region Laterality Modality Breast Bilateral Mammography 02/24/2023 1:18 PM EDT Narrative 02/24/2023 4:54 PM EDT PROCEDURE: MM Digital Mammo Screening INDICATION: Screening. No known palpable abnormalities. There is a family history of breast cancer the patient's mother at age 76 and daughter at age 32. COMPARISON: Comparison is made to prior mammograms dating back to 12/17/2017. TECHNIQUE: Full-field digital CC and MLO 3D tomosynthesis images of both breasts were acquired. Computer-aided detection (CAD) was utilized in the interpretation of this study. DENSITY: The breast tissue contains scattered areas of fibroglandular density. FINDINGS: Benign calcifications are seen bilaterally. No suspicious masses, suspicious microcalcifications, or areas of architectural distortion are seen in either breast to suggest malignancy. IMPRESSION: No mammographic evidence of malignancy. RECOMMENDATION: Annual mammographic screening BI-RADS: 2 (Benign) Lay letter mailed to patient WSN: [id number] Ordering Physician: Christine Robbins Dictated By: Shannon Martinez MD Dictated Date/Time: 02/24/23 4:51 pm Reviewed By: Shannon Martinez MD Signed By: Shannon Martinez MD Signed Date/Time: 02/24/23 4:51 pm Transcribed By: CSB Senior Account Director Date/Time: 02/24/23 4:48 pm Birads: Procedure Note Donotuseinterpreter, Image - 02/24/2023 PROCEDURE: MM Digital Mammo Screening INDICATION: Screening. No known palpable abnormalities. There is afamily history of breast cancer the patient's mother at age 76 and daughter atage 32. COMPARISON: Comparison is made to prior mammograms dating back to12/17/2017. TECHNIQUE: Full-field digital CC and MLO 3D tomosynthesis images of bothbreasts were acquired. Computer-aided detection (CAD) was utilized in theinterpretation of this study. DENSITY: The breast tissue contains scattered areas of fibroglandulardensity. FINDINGS: Benign calcifications are seen bilaterally. No suspiciousmasses, suspicious microcalcifications, or areas of architectural distortion areseen in either breast to suggest malignancy. IMPRESSION: No mammographic evidence of malignancy. RECOMMENDATION: Annual mammographic screening BI-RADS: 2 (Benign) Lay letter mailed to patient WSN: [id number] Ordering Physician: Christine Robbins Dictated By: Shannon Martinez MD Dictated Date/Time: 02/24/23 4:51 pm Reviewed By: Shannon Martinez MD Signed By: Shannon Martinez MD Signed Date/Time: 02/24/23 4:51 pm Transcribed By: CSElias Senior Account Director Date/Time: 02/24/23 4:48 pm Birads: Christine Robbins PUBLIC ADDRESS SYSTEM OPERATOR IMG BI PROCEDURES Final Result * HM Hepatitis C Antibody (05/20/2022) Hepatitis C Antibody Nonreactive Blood Historical Provider HEALTH MAINTENANCE Final Result * Colonoscopy (03/28/2018 10:36 AM EDT) Colonoscopy Normal Normal Kemi Carter PUBLIC ADDRESS SYSTEM OPERATOR HEALTH MAINTENANCE Final Resul t from Last 3 Months or Most Recently Relevant to Health Maintenance Insurance MEDICARE [facility] MEDICAID STAND ADULT DENTAL - HSN FULL (MEDICAID) Advance Directives Documents on File Type Date Recorded Patient Airplane Inspector Expl anation HealthCare Proxy 11/28/2024 Health Care Proxy MOLST form 06/19/2024 Care Teams Car Hostler Relationship Specialty Start Date End Date Mihai Bustamante MD [address] [place] [id number] PCP - General Internal Medicine 05/23/24 Hina Knutson [address] [place] [address] 01/12/23 Kevin Brown LLD [address] [place] [id number] Dentist 08/24/23 Ramsey Robles RDH [address] [place] [address] Dental Quality Control Director 08/24/23
--- OUTSIDE RECORDS SUMMARY | 2025-03-08 13:07 | XMS_ITS | Clinical Summary ---
Author Organization [facility], Address [address] [place] [address] Phone Care Team Providers Care Stump Shooter Name Role Phone Mihai Bustaamnte MD Primary Care Provider [phone] Allergies Active Allergy Reactions Criticality Noted Date Comments Levofloxacin 07/12/2020 Psyllium 07/12/2020 Promethazine 07/12/2020 Sulfa Antibiotics 07/12/2020 Medications acyclovir (ZOVIRAX) 400 MG tablet Take 400 mg by mouth 1 (one) time each day Active multivitamin, adult, (CENTRUM) tablet Take 1 tablet by mouth 1 (one) time each day Active clonazePAM (KlonoPIN) 0.5 MG tablet Take 0.25 mg by mouth in the morning and 0.25 mg at noon and 0.25 mg in the evening and 0.25 mg before bedtime. Active lamoTRIgine (LaMICtal) 200 MG tablet Take 200 mg by mouth 2 (two) times a day Active levothyroxine (SYNTHROID, LEVOTHROID) 150 MCG tablet Take 150 mcg by mouth 1 (one) time each day Active pramipexole (MIRAPEX) 0.25 MG tablet Take 0.125 mg by mouth 1 (one) time each day Active propranolol (INDERAL) 80 MG tablet Take 80 mg by mouth 1 (one) time each day Active Magnesium 250 MG tablet Take 500 mg by mouth 1 (one) time each day Active aspirin-acetami nophen-caffeine (EXCEDRIN MIGRAINE) 250-250-65 MG per tablet Take 4 tablets by mouth every 6 (six) hours if needed for headaches Active ibuprofen (ADVIL,MOTRIN) 200 MG tablet Take 200 mg by mouth every 6 (six) hours if needed for mild pain Not usually Active spironolactone (ALDACTONE) 25 MG tablet Take 50 mg by mouth 1 (one) time each day Active tiZANidine (ZANAFLEX) 2 MG capsule Take 1 mg by mouth 3 (three) times a day if needed Active traMADol (ULTRAM) 50 MG tablet Take 100 mg by mouth 2 (two) times a day if needed for moderate pain Active Ascorbic Acid (vitamin C) 1000 MG tablet Take 1,000 mg by mouth 1 (one) time each day Active SUMAtriptan (IMITRIX) 6 MG/0.5ML injection sumatriptan 6 mg/0.5 mL subcutaneous pen injector Active sucralfate (CARAFATE) 1 g tablet Take 1 g by mouth 1 (one) time each day Active B Complex-C (B complex-vitamin C) tablet Take 1 tablet by mouth 1 (one) time each day Active alpha tocopherol (VITAMIN E) 200 units capsule Take 200 Units by mouth 1 (one) time each day Active ziprasidone (GEODON) 20 MG capsule Take 20 mg by mouth every night Active Diclofenac Sodium 1 % gel Apply topically Active HM LIDOCAINE PATCH EX Apply topically Acti ve acetaminophen (TYLENOL) 500 MG tablet Take by mouth every 6 (six) hours if needed for mild pain Active promethazine (PHENERGAN) 25 MG tablet Take 25 mg by mouth every 6 (six) hours if needed for nausea or vomiting Active famotidine (PEPCID) 20 MG tablet Take 20 mg by mouth in the morning and 20 mg in the evening. Active cholestyramine (QUESTRAN) 4 g packet Take 1 packet by mouth in the morning and 1 packet at noon and 1 packet in the evening. Take with meals. Active ondansetron (ZOFRAN) 4 MG tablet Take 4 mg by mouth every 8 (eight) hours if needed for nausea or vomiting Active venlafaxine (EFFEXOR) 25 MG tablet Take 25 mg by mouth in the morning and 25 mg in the evening. Active Active Problems Problem Noted Date Diagnosed Date Acute nontraumatic kidney injury, not otherwise specified 01/23/2025 Hypo-osmolality and hyponatremia 01/23/2025 Microalbuminuria 10/06/2023 Chronic kidney disease stage 3A 01/15/2023 Diabetes mellitus 01/15/2023 Essential (primary) hypertension 05/05/2022 Vitamin D deficiency 07/16/2020 Calculus of kidney Anemia, not otherwise specified Secondary hyperparathyroidism of renal origin Resolved Problems Problem Noted Date Diagnosed Date Resolved Date Right upper quadrant pain 04/13/2024 Severe recurrent major depre ssion with psychotic features 08/05/2023 04/13/2024 Overview (04/13/2024): Last Assessment & Plan: Encouraged to continue to follow up with her psychiatrist. She understood and agreed. Occipital neuralgia 04/15/2023 04/13/20 24 Loss of hair 03/12/2023 04/13/2024 Overview (04/13/2024): Last Assessment & Plan: Chronic, stable. Likely multifactorial - labs previously ordered to assess thyroid, vitamins/minerals, awaiting results. Deferring treatment at this time until clearer sense of cause. Mild major depression, single episode 03/12/2023 04/13/2024 Chronic zinc deficiency 01/15/202312/28 Hypothyroidism 01/15/2023 01/15/2023 Malignant neoplasm of cervix uteri 01/15/2023 01/15/2023 Overview (01/15/2023): approx in 1984-rx done in [place],per pt had stage 1 cervical cancers/p hysterectomy Multiple nodules of lung 01/15/2023 Obstructive sleep apnea syndrome 01/15/2023 01/15/2023 Parasomnia 01/15/2023 01/15/2023 Restless legs 01/15/2023 01/15/2023 Apnea 12/25/2022 08/04/2023 08/04/2023 Chronic cough 11/27/2022 08/04/2023 08/04/2023 Cystitis 11/24/2022 08/04/2023 08/04/2023 Increased frequency of urination 11/24/2022 08/04/20 23 08/04/2023 Pure hypercholesterolemia 10/31/2020 08/04/2023 Osteoporosis 08/19/2020 08/04/2023 08/04/2023 Type 2 diabetes mellitus wit h diabetic polyneuropathy 07/16/2020 01/15/2023 FCI use of nonsteroida l anti-inflammatories 07/16/2020 01/18/2022 Bipolar disorder 07/16/2020 01/18/2022 Hyperlipidemia 07/16/2020 01/15/2023 Fibromyalgia 07/16/2020 07/14/2021 Obesity 07/16/2020 07/14/2021 Stage 3b chronic kidney disease 07/12/2020 01/19/2023 Overview (09/02/2020): Update for Diagnosis Load Encounters Date Type Department Care Team Description 02/12/2025 Office Communication [facility] [address] [place] [id number] Cadence Dewitt MA 01/23/2025 3:30 PM EDT Office Visit [facility] [address] [address] Priyanka Gillis DO Acute nontraumatic kidney injury, not otherwise specified (HCC) (Primary Dx); Chronic kidney disease stage 3A (HCC); Hypo-osmolality and hyponatremia from Last 3 Months Immunizations Immunization Administration Dates Next Due Influenza Whole 06/19/2010 Moderna SARS-COV-2 01/17/2021,12/20/2020 Pneumococcal Conjugate 13-Valent 04/21/2018 Pneumococcal Polysaccharide 06/01/2014, 9 Tdap 07/14/2012 Zoster 12/30/2015 Family History Medical History Relation Comments Aortic aneurysm Father Cerebral aneurysm Father Diabetes type II Maternal Grandmother Breast cancer Mother Hypertension Mother Relation Status Comments Father Maternal Grandmother Mother Social History Tobacco Use Types Packs/Day Years Used Date Smoking Tobacco: Former Smokeless Tobacco: Never Tobacco Cessation:Counseling Given: Not Answered Alcohol Use Standard Drinks/Week Comments Not Currently 0 (1 standard drink = 0.6 oz pur e alcohol) Comments Unknown Sex and Gender Information Value Date Recorded Sex Assigned at Not on file Legal Sex Female 4:38 PM EST Gender Identity Not on file Sexual Orientation Not on file Last Filed Vital Signs Vital Sign Reading Time Taken Comments Blood Pressure 122/68 01/23/2025 3:49 PM EDT Pulse - - Temperature - - Respiratory Rate - - Oxygen Saturation - - Inhaled Oxygen Concentration - - Weight - - Height - - Body Mass Index - - Plan of Treatment Upcoming Encounters Date Type Department Care Team (Late st Contact Info) Description 04/25/2025 1:30 PM EDT Office Visit [facility] [address] [address] Priyanka Gillis DO [address] [place] [address] Health Maintenance Due Date Last Done Comments Breast Cancer Screening 1955 Colorectal Cancer Screening: Annual FOBT 2002 Colorectal Cancer Screening: Colonoscopy 2002 Colorectal Cancer Screening: Sigmoidoscopy 2002 Diabetes: Ophthalmology Exam 07/16/2020 Diabetes: Pedal Pulse Checked 07/16/2020 Diabetes: Sensory Foot Exam 07/16/2020 Diabetes: Visual Foot Exam 07/16/2020 Pneumococcal Vaccine: 50+ Years (4 of 4 - PCV20 or PCV21) 04/21/2023 04/21/2018, 06/01/2014, 10/08/2008 Diabetes: Hemoglobin A1C 03/07/2025 025, 11/02/2024, 06/13/2024, Additional history exists Influenza Vaccine (#1) 2025 8, 06/02/2017, 04/29/2016, Additional history exists Pneumococcal Vaccine: Peds (0 to 5 Years) and At-Risk Patients (6 to 49 Years) Discontinued 04/21/2018, 06/01/2014, 10/08/2008 Hepatitis B Vaccine Aged Out No longe r eligible based on patient's age to complete this topic Procedures Procedure Name Priority Date/Time Associated Diagnosis Comments VITAMIN D 25 HYDROXY Routine 01/18/2025 2:39 PM EDT Chronic kidney disease stage 3A (HCC) Secondary hyperparathyroidism of renal origin (HCC) RENAL FUNCTION PANEL Routine 01/18/2025 2:39 PM EDT Chronic kidney disease stage 3A (HCC) PTH, INTACT Routine 01/18/2025 2:39 PM EDT Chronic kidney disease stage 3A (HCC) Secondary hyperparathyroidism of renal origin (HCC) CBC AND DIFFERENTIAL Routine 01/18/2025 2:39 PM EDT Chronic kidney disease stage 3A (HCC) from Last 3 Months Results * Vitamin D 25 hydroxy (01/18/2025 2:39 PM EDT) Vitamin D, 25-OH, Total 64.2 30.0 - 100.0 ng/mL [facility] Comment: Vitamin D deficiency has been defined by the [place] [employer] and an Endocrine Society practice guideline as a level of serum 25-OH vitamin D less than 20 ng/mL (1,2). The Endocrine Society went on to further define vitamin D insufficiency as a level between 21 and 29 ng/mL (2). 1. IOM ([place] [employer]). 2010. Dietary reference intakes for calcium and D. [place]: The National Academies Press. 2. Yaritza MF, Lakhwinder DAVE, Lux KLEIN, et al. Evaluation, treatment, and prevention of vitamin D deficiency: an Endocrine Society clinical practice guideline. JCEM. 2010; 96(7):1911-30. Blood specimen (specimen) Venous blood / Unknown 01/18/2025 2:39 PM EDT 01/18/2025 us Priyanka Gillis DO LAB BLOOD ORDERABLES Final Re sult [facility] [address] [place] [address] * (ABNORMAL) CBC and differential (01/18/2025 2:39 PM EDT) WBC 13.2(H) 3.4 - 10.8 x10E3/uL [facility] RBC 4.12 3.77 - 5.28 x10E6/uL [facility] Hemoglobin 13.1 11.1 - 15.9 g/dL [facility] Hematocrit 38.6 34.0 - 46.6 % [facility] MCV 94 79 - 97 fL [facility] MCH 31.8 26.6 - 33.0 pg [facility] MCHC 33.9 31.5 - 35.7 g/dL [facility] RDW 12.9 11.7 - 15.4 % [facility] Platelets 345 150 - 450 x10E3/uL [facility] Neutrophils Relative 61 Not Estab. % [facility] Lymphocytes Relative 24 Not Estab. % [facility] Monocytes 12 Not Estab. % [facility] Eosinophils Relative 1 Not Estab. % [facility] Basophils Relative 1 Not Estab. % [facility] Neutrophils Absolute 8.3(H) 1.4 - 7.0 x10E3/uL [facility] Lymphocytes Absolute 3.1 0.7 - 3.1 x10E3/uL [facility] Monocytes Absolute 1.5(H) 0.1 - 0.9 x10E3/uL [facility] Eosinophils Absolute 0.1 0.0 - 0.4 x10E3/uL [facility] Basophils Absolute 0.1 0.0 - 0.2 x10E3/uL [facility] Immature Granulocytes 1 Not Estab. % [facility] Immature Grans (Absolute) 0.1 0.0 - 0.1 x10E3/uL [facility] Blood specimen (specimen) Venous blood / Unknown 01/18/2025 2:39 PM EDT 01/18/2025 us [employer] LAB BLOOD ORDERABLES Final Re sult [facility] [address] [place] [address] * PTH, intact (01/18/2025 2:39 PM EDT) PTH 61 15 - 65 pg/mL [facility] Blood specimen (specimen) Venous blood / Unknown 01/18/2025 2:39 PM EDT 01/18/2025 us Priyanka [employer] LAB BLOOD ORDERABLES Final Re sult Performing Organization Address City/[facility]/ZIP Co de Phone Number [facility] [address] [place] [address] * (ABNORMAL) Renal function panel (01/18/2025 2:39 PM EDT) Glucose 178(H) 70 - 99 mg/dL [facility] BUN 76(HH) 8 - 27 mg/dL [facility] Creatinine 2.30(H) 0.57 - 1.00 mg/dL [facility] eGFR CKD-EPI CR 2020 22(L) >59 mL/min/1.7 3 [facility] BUN/Creatinine Ratio 33(H) 12 - 28 [facility] Sodium 127(L) 134 - 144 mmol/L [facility] Potassium 5.1 3.5 - 5.2 mmol/L [facility] Chloride 90(L) 96 - 106 mmol/L [facility] Calcium 9.8 8.7 - 10.3 mg/dL [facility] Phosphorus 5.5(H) 3.0 - 4.3 mg/dL [facility] Albumin 4.8 3.8 - 4.8 g/dL [facility] Bicarbonate (CO2) 14(L) 20 - 29 mmol/L [facility] Comment:Verified by repeat analysis Blood specimen (specimen) Venous blood / Unknown 01/18/2025 2:39 PM EDT 01/18/2025 us Priyanka Gillis DO LAB BLOOD ORDERABLES Final Re sult [facility] [address] [place] [address] from Last 3 Months Insurance Medicare Medicaid [place] Care Teams Stump Shooter Relationship Specialty Start Date End Date Mihai Bustamante MD [address] [place] [address] PCP - General Internal Medicine 05/30/24
--- OUTSIDE RECORDS SUMMARY | 2025-03-08 13:07 | XMS_ITS ---
Continuity of Care Document (CCD) Created on: March 08, 2025 Hannah Robbins External Reference #: [id number] : 1955 Sex: Female Author Organization [facility] Address [address] [facility] [facility] [address] [place], [place] Phone [phone] Care Team Providers Care Distribution Sales Manager Name Role Phone Dana Cruz NP Care Team Information Optical Mechanic Unavailable KIMBERLI JAY M.D. Care Team Information Rec eiver Unavailable Dana Cruz MEDICAL RECORDS CLERK Primary Care Physician Unavaila ble Problems Active Problems Provider Date Osteoporosis Kimberli Jay M.D. Onset: 10/20/2019 Hypothyroidism Kimberli Jay M.D. Onset: 10/20/2019 Pure hypercholesterolemia Yolie [facility]ango Onset: 10/31/2020 Social History Type Date Description Comments Sex Female Sex Unknown Allergies and adverse reactions Active Allergies Criticality Reaction Severity Comments Date Levofloxacin Unable to assess criticality sulfa 08/19/2020 Codeine Unable to assess criticality Itching 08/19/2020 Phenergan Unable to assess criticality 10/31/2020 Levaquin Unable to assess criticality 10/31/2020 Sulfa Unable to assess criticality 10/31/2020 Medications Active Medications SIG Qnty Indications Order ing Provider Date Freestyle Lite Blood Glucose Monitoring SystemTed Castrejon MD Lidocaine Viscous HCL2% Solution Unknown Calcium Carb-Ldpisvpplaubvow398- 400mg-Unit Tablets take 1 tablet by mouth once daily Unknown Propranolol FPG84zy Tablets take 1 tablet by mouth twice a day Per MD: Patient Requires New Labs Prior To Refill Unknown Fzc064xb Capsules take 1 capsule by mouth twice a day if needed for constipation Unknown Vczvyfnh798997Shfj/ML Suspension Dana Cruz NP Bgfkdpcwwai000nq Capsules Unknown Sycnhnqcvkspn161jt Tablets Dana Cruz NP Freestyle LancetsMisc Ted Johnson MD Ypjoptwueo39xc Tablets prn Ce Becky betancourt MD Freestyle Lite TestStrips Ted Franco MD Ondansetron HCL4mg Tablets Ted Franco MD Swobkif06qe Tablets DR 1 by mouth every day(or excedrine) Ted Franco MD GNBarb Calcium Plus 600 +W587-731vg-Ayub Tablets Ted Arredondo MD Bromsite0.075% Solution Garry Atkins Lotemax SM0.38% Gel Jonatan Atkins Probiotics Unknown 0 Vit C 500mg bid Unknown Brfdztxjkc70ee Tablets take 1 tablet by mouth every morning after breakfast Unknown Xncpgkgnjv387yg Capsules bid Ted Franco MD Levothyroxine Ieuwpk091fkz Tablets 1 by mouth every day 90tabs Dana Cruz NP Clonazepam0.5mg Tablets @hs Unknow n Pantoprazole Odgdqe74tx Tablets DR take 1 tablet by mouth once daily Unknown Diclofenac Sodium1% Gel Unknow n Pramipexole Dihydrochloride0.25mg Tablets Dana Cruz NP Kaplqlonj673ga Tablets take 1 tablet by mouth twice a day Unknown Trazodone JSY763gr Tablets take 2 tablets by mouth at bedtime Unknown Pciyimthghu144wk Tablets take 1 tablet b y mouth twice a day Unknown Desvenlafaxine Succinate BQ363sy Tablets ER 24HR take 1 tablet by mouth every morning with food Unknown Fexofenadine PLY66ai Tablets take 1 tablet by mouth once daily Unknown SM Migraine Idqyqv362-049-24ib Tablets Dana Cruz NP CentravitesTablets take 1 tablet by mouth daily Unknown Morphine Mskakxa49my Tablets take 1/2 tablet by mouth every 4 hours if needed for Breakthrough... (Refer To Prescription Notes). Unknown Triamcinolone Acetonide Dental Paste0.1% Paste Apply A Small Amount To Oral Ulcers Three Times A Day For 2 Weeks Unknown Tramadol DMT73zr Tablets Gil Prieto MD History Medications Ra Anesthetic Oral20% Gel apply topicall y as directed four times a day for pain Unknown - 08/19/2020 Acswmakufj06jv Capsules Ted Plummer MD - 08/19/2020 Quetiapine Tngoxyvd93zo Tablets Unknown - 08/19/2020 Zolpidem Oyamwvrh57is Tablets Unknown - 08/19/2020 Peg 071878KK/Scoop Powder Becky Dove MD - 08/19/2020 Moxifloxacin HCL0.5% Solution Garry Atkins - 10/31/2020 Ziprasidone STB07yy Capsules U nknown - 08/19/2020 Peg-3350/Nacl/Na Bicarbonate/VTK536gj Solution Rec Becky Maria MD - 08/19/2020 Zolpidem Rqwqapkq0xc Tablets U nknown - 08/19/2020 Gemovtmc4ys/24HR Patches 24HR Ted Franco MD - 08/19/2020 Pioglitazone VTL66bd Tablets Ted Franco MD - 08/19/2020 Vitamin X003Rrbi Capsules take 1 capsule by mouth twice a day Unknown - 08/19/2020 Levothyroxine Amfmon198grr Tablets Dana Cruz NP - 08/19/2020 Vitamin S8008gx Tablets take 1 tablet by mouth three times a day Unknown - 08/19/2020 CentravitesTablets Dana Cruz, RIKA - 08/19/2020 Bxlgyh30ca Tablets take 1 tablet by mouth daily at bedtime Unknown - 08/19/2020 Gwecqd75nz Tablets Unknown 0 - 08/19/2020 Triamcinolone Sdfnylcvx82mco/Act Aerosol instill 1 spray into each nostril daily Unknown - 08/19/2020 Tizanidine HCL2mg Tablets Dana Cruz NP - 08/19/2020 Pmtswmnyh8lg Tablets Unknown - 08/19/2020
--- OUTSIDE RECORDS SUMMARY | 2025-03-08 13:07 | XMS_ITS | Data Portability ---
Author Organization [facility], [employer] Address [address] [place] [address] Assessment Encounter Date Assessment Date Assessment LastModified by Organization Details LastModified Time 01/11/2024 01/11/2024 Patient presents today for new patient visit to establish primary care relationship. Personal and family history reviewed. Patient states that she feels that all her health concerns at this time are well-managed. Plan is to have patient continue current medications and specialist visits and to follow-up in office in another month. Reviewed meds in detail. No changes at this lizz. During this encounter, 2 of the 3 elements of MDM addressed: (1)Number and Complexity of problems: 2 or more stable chronic illnesses (2)Amount/Complex ity of data (need 1 out of 3 categories): (3)Moderate Risk of morbidity from additional diagnostic testing or treatment (one needed): Prescription Drug management. [email or web address] Not available 01/12/2024 09:13:49 02/04/2024 02/04/2024 30 minutes spent on date of service on chart review, direct time spent with patient, and documentation of clinical encounter. [email or web address] Not available 02/04/2024 17:34:57 02/09/2024 02/09/2024 Chief complaint - Gallbladder issues - Esophageal inflammation - Chronic kidney disease - Sleep disturbances History of present illness - Patient has gallbladder issues, confirmed by Dr. Maria - Patient has esophageal inflammation - Patient has chronic kidney disease, with creatinine levels fluctuating between 1.2 and 1.5 - Patient experiences sleep disturbances, including sleepwalking and episodes of stopped breathing Current medications - Patient is on medication for gallbladder issues - Patient is on spironolactone for water retention Lab results - Creatinine levels fluctuating between 1.2 and 1.5 - Last A1C was 6.5 in 2023 Imaging results Dilation of common bile duct Assessment - Gallbladder issues - Esophageal inflammation - Chronic kidney disease - Sleep disturbances, possibly related to narcolepsy Plan - Dr. Maria to investigate gallbladder issues - Routine blood work to be done - Follow up with sleep doctor regarding sleep disturbances - Possible consultation with a neurologist if sleep doctor continues to disagree with narcolepsy diagnosis - Follow up in four to six weeks to review labs and other issues Prescription - Continue current medications - Blood work to check creatinine, A1C, thyroid, inflammation markers, and white blood cell count Appointments - Follow up appointment in four to six weeks - Appointment with sleep doctor in one to two weeks ICD-10 codes (4) - Disease of gallbladder, unspecified [K82.9] - Gastritis, unspecified, without bleeding [K29.70] - Chronic kidney disease, unspecified [N18.9] - Sleep disorder, unspecified [G47.9] [email or web address] Not available 02/09/2024 11:06:29 03/13/2024 03/13/2024 Chief complaint - Seeing GI, endocrine surgery - Pain in feet and calves, sometimes in hips - Elevated creatinine levels - Elevated hemoglobin A1C levels - Electric yellow urine History of present illness - Barby, female, age not specified - Reports pain in feet and calves, sometimes in hips - Pain severity between 7 and 8 most days - Pain is sharp and radiates - Pain worsens when walking, but moslty in feet, not calves - Reports electric yellow urine, some days it's normal - Taking cranberry pills to help with kidney disease - Hemoglobin A1C levels increased from 6.5 to 7.3 - Reports not being good about diet, but has improved recently Past medical history - History of osteoporosis, but reports it went away after taking Vitamin D and Calcium - History of large disk protrusion on lumbar spine - Received shots for pain in spine in the past Past surgical history - Considering surgery for adenoma - Decided against Inspire surgery for sleep apnea Social history - Reports staying indoors due to warm weather - Uses air conditioning to stay cool Current medications - Taking cranberry pills for kidney disease - Reducing dosage of Klonopin Lab results - Elevated creatinine levels, but within normal range for age - Hemoglobin A1C levels increased from 6.5 to 7.3 Imaging results - Previous MRI showed large disk protrusion on lumbar spine - Plan to repeat MRI to check on disk protrusion Physical exam SKIN: No black or blue discoloration on foot. EXTREMITIES: Legs and feet appear healthy, no issues with blood flow. Some swelling in legs. Bunion on foot. Assessment - Pain in feet and calves, sometimes in hips, likely due to large disk protrusion on lumbar spine - Elevated creatinine levels, but within normal range for age - Elevated hemoglobin A1C levels, indicating possible diabetes - Electric yellow urine, cause unknown Plan - Repeat MRI to check on disk protrusion - Continue physical therapy - Recheck hemoglobin A1C levels in a few months - Consider bone scan to check on osteoporosis Appointments - Follow-up appointment in three months - Blood work to be done one week prior to next appointment - MRI to be scheduled separately ICD-10 codes (3) - Other intervertebral disc displacement, lumbar region [M51.26] - Type 2 diabetes mellitus without complications [E11.9] - Other specified abnormal findings of blood chemistry [R79.89] [email or web address] Not available 03/13/2024 11:48:46 05/08/2024 05/08/2024 Chief complaint Patient wanted to discuss MRI results and has concerns about increased craving for sweets. 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 - Adjusted sleeping arrangements, symptoms improved. - Increased craving for sweets and late-night eating, leading to weight gain. - Experiencing sleep disturbances. - Mild gallbladder attack, subsided. Past medical history - Patient has a history of gallstones, one of which was removed. - Patient has a history of thyroid issues. Social history Patient has been making adjustments to sleeping arrangements. Current medications - Patient is on Ziprasidone. - Patient has been taking nitric oxide, alpha lipoic acid, and zinc supplements. - Patient requests a prescription for Excedrin with caffeine. Lab results - Patient reports low vitamin D and zinc levels from previous blood work. - Recent labs appear normal. Imaging results - MRI shows severe arthritis in the lumbar region of the spine, causing some narrowing and potential pressure on the nerves. - ERCP shows presence of gallstones. 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 - Improved symptoms with changes in sleeping arrangements. - Increased craving for sweets and late-night eating. - Mild gallbladder attack. Plan - Patient to continue with current sleeping arrangements. - Patient to monitor and control sweet cravings and late-night eating. - Patient to follow up with Dr. Mccarthy regarding gallstones. - Patient to contact Medicare regarding non-payment for thyroid labs. Prescription Prescription for Excedrin with caffeine provided. Appointments Three-month check-in appointment to be scheduled upon checkout. ICD-10 codes (2) - Sleep disorder, unspecified [G47.9] - Hypothyroidism, unspecified [E03.9] [email or web address] Not available 05/08/2024 12:11:52 Plan of Treatment Reminders Order Date Submit Date Provider Last Modified By Organization Details Last Modified Time Details Appointments None recorded. Lab HbA1c (hemoglobin A1c), blood 2023 024 [email or web address] [facility] (Centralized Electronic Ordering - All Locations), Patient Can Go To The Location Of Their Choice, [id number] 12:12:31 ESR (erythrocyt e sedimentati on rate), blood 2023 024 Eons [facility], [address], [place], [address], 4 08:08:49 C reactive protein, QN, serum or plasma 2023 024 Eons [facility], [address], [place], [address], 4 08:08:49 TSH + free T4, serum 2023 024 Eons [facility], [address], [place], [address], 4 08:08:47 BMP, serum or plasma 2023 024 Eons [facility], [address], [place], [address], 4 08:08:48 HbA1c (hemoglobin A1c), blood 2023 024 KELLY [facility], [address], [place], [address], 4 08:08:48 Referral None recorded. Procedures None recorded. Surgeries None recorded. Imaging MRI, lumbar spine, w/o contrast 2023 024 [email or web address] 4 [facility] ( [facility]ri), [address], [place], [address], 4 10:26:54 electrocard iogram 2023 024 J[facility] Main Office, [address], [address], [place], [address], 4 18:40:51 Medication Orders Excedrin Migraine 250 mg-250 mg-65 mg tablet 2023 024 [place] [address], [address], [place], [address], 4 12:03:21 ondansetron 4 mg disintegrat ing tablet 2023 024 [place] [address], [address], [place], [address], 4 15:09:10 Mylanta Maximum Strength 400 mg-400 mg-40 mg/5 mL oral suspension 2023 024 [email or web address] [place] [address], [address], [place], [address], 4 15:09:16 Patient TargetsNo targets recorded. Patient InstructionsNo instructions recorded. Reason for Referral None Reported. Results Created Date Observation Date Name Description Value Unit Range Abnormal Flag Note LastModifiedBy Organization Detail LastModifiedTime 03/01/2003/02/2024 TSH+F REE T4 TSH 3.620 uIU/m L 0.450- 4.500 Not Available [facility] ([facility]) [address] [place], [address], 2024 08:08:47 03/01/2003/02/2024 TSH+F REE T4 T4,free(dire ct) 1.53 NG/dL 0.82-1 .77 Not Available [facility] ([facility]) [address] [facility], [place], [address], 2024 08:08:47 03/01/20 24 2024 BASIC METAB OLIC PANEL (8) glucose 133 mg/dL 70-99 above high normal Not Available [facility] ([facility]) [address] [place], [address], 2024 08:08:48 03/01/20 24 2024 BASIC METAB OLIC PANEL (8) BUN 28 mg/dL 8-27 above high normal Not Available [facility] ([facility]) [address] [place], [address], 2024 08:08:48 03/01/20 24 2024 BASIC METAB OLIC PANEL (8) creatinine 1.31 mg/dL 0.57-1 .00 above high normal Not Available [facility] ([facility]) [address] [place], [address], 2024 08:08:48 03/01/20 24 2024 BASIC METAB OLIC PANEL (8) eGFR 44 mL/mi n/1.7 3 >59 below low normal Not Available [facility] ([facility]) [address] [place], [address], 2024 08:08:48 03/01/20 24 2024 BASIC METAB OLIC PANEL (8) BUN/creatini ne ratio 21 12-28 Not Available [facility] ([facility]) [address] [place], [address], 2024 08:08:48 03/01/20 24 2024 BASIC METAB OLIC PANEL (8) sodium 135 mmol/ L 134-14 4 Not Available [facility] ([facility]) [address] [place], [address], 2024 08:08:48 03/01/20 24 2024 BASIC METAB OLIC PANEL (8) potassium 5.1 mmol/ L 3.5-5. 2 Not Available [facility] ([facility]) [address] [place], [address], 2024 08:08:48 03/01/20 24 2024 BASIC METAB OLIC PANEL (8) chloride 100 mmol/ L 96-106 Not Available [facility] ([facility]) [address] [place], [address], 2024 08:08:48 03/01/20 24 2024 BASIC METAB OLIC PANEL (8) carbon dioxide, total 19 mmol/ L 20-29 below low normal Not Available [facility] ([facility]) [address] [place], [address], 2024 08:08:48 03/01/20 24 2024 BASIC METAB OLIC PANEL (8) calcium 10.3 mg/dL 8.7-10 .3 Not Available [facility] ([facility]) [address] [place], [address], 2024 08:08:48 03/01/20 24 2024 HEMOG LOBIN A1C hemoglobin A1C 7.3 % 4.8-5. 6 above high normal Predi abete s: 5.7 - 6.4 Diabe aayush: >6.4 Glyce magdy contr ol for adult s with diabe aayush: <7.0 Not Available [facility] ([facility]) [address] [place], [address], 2024 08:08:48 03/01/20 24 2024 SEDIM ENTAT ION RATE- WESTE RGREN sedimentatio n rate-westerg anna 13 mm/HR 0-40 Not Available [facility] ([facility]) [address] [place], [address], 2024 08:08:48 03/01/20 24 2024 C-DONNY CTIVE PROTE IN, QUANT C-reactive protein, quant 2 mg/L 0-10 Not Available [facility] ([facility]) [address] [facility], [place], [address], 2024 08:08:49 04/03/20 24 04/04/2024 HEMOG LOBIN A1C hemoglobin A1C 7.2 % 4.8-5. 6 above high normal Predi abete s: 5.7 - 6.4 Diabe aayush: >6.4 Glyce magdy contr ol for adult s with diabe aayush: <7.0 Not Available [facility] ([facility]) [address] [facility], [place], [address], 04/04/2024 06:08:05 02/04/20 24 02/04/2024 elect rocar diogr am No observ ation record ed. [facility] Main Office [address] [place] [address] [address], [place], [address], 02/04/2024 18:40:55 02/11/20 elect rocar diogr am No observ ation record ed. [place] [address] [address] [place] [address] [address], [place], [address], 02/11/2024 15:14:58 02/29/20 24 02/28/2024 MAMMO , scree kristie, digit al, bilat eral PROCED URE: MM Digita l Mammo Screen ing INDICA TION: Screen ing for breast cancer . No known palpab le abnorm alitie s. COMPAR GIOVANA: Multip le prior compar giovana studie s, most recent on 023 . TECHNI QUE: Full-f ield digita l CC and MLO 3D tomosy nthesi s images of both breast s were acquir ed. Comput er-aid ed detect ion (CAD) was utiliz ed in the interp retati on of this study. Per mammog eliza techno logist 's notes, best possib le images were obtain ed due to diffic ulties with positi oning. DENSIT Y: There are scatte red areas of fibrog landul ar densit y. FINDIN GS: No suspic ious masses , suspic ious microc alcifi cation s, or areas of alina ectura l distor tion are seen in either breast to sugges t malign kyara. IMPRES KASH: No mammog raphic eviden ce of malign kyara. RECOMM ENDATI ON: Annual mammog raphic screen ing BI-RAD S: 1 (Negat michael) Lay letter mailed to markos up WSN: [id number] Lex cobos Physic kody: Shamir Rossi W Dictat ed By: Stacia Neri MD Dictat ed Date/T saul: 9:07 am Review ed By: Stacia Neri MD Signed By: Stacia Neri MD Signed Date/T saul: 9:07 am Transc ribed By: CSB Transc riptio n Date/T saul: 9:03 am Birads : Markos up Class: 5 [facility]) [address] [place], [address], 03/03/2024 21:18:11 04/12/20 24 04/11/2024 MRI, lumba r spine , w/o contr ast No observ ation record ed. [facility] ( [facility]) [address] [place], [address], 04/18/2024 16:04:52 Result Notes Documentation Provider Name and Address Organization Details Recorded Time Mammo, Screening, Digital, Bilateral : PROCEDURE: MM Digital Mammo Screening INDICATION: Screening for breast cancer. No known palpable abnormalities. COMPARISON: Multiple prior comparison studies, most recent on 02/24/2023 . TECHNIQUE: Full-field digital CC and MLO 3D tomosynthesis images of both breasts were acquired. Computer-aided detection (CAD) was utilized in the interpretation of this study. Per chemistry technologist's notes, best possible images were obtained due to difficulties with positioning. DENSITY: There are scattered areas of fibroglandular density. FINDINGS: No suspicious masses, suspicious microcalcifications, or areas of architectural distortion are seen in either breast to suggest malignancy. IMPRESSION: No mammographic evidence of malignancy. RECOMMENDATION: Annual mammographic screening BI-RADS: 1 (Negative) Lay letter mailed to patient WSN: [id number] Ordering Physician: Shamir Rossi Dictated By: Stacia Solitario MD Dictated Date/Time: 02/29/24 9:07 am Reviewed By: Stacia Solitario MD Signed By: Stacia Solitario MD Signed Date/Time: 02/29/24 9:07 am Transcribed By: ANITA Tip Fixer Date/Time: 02/29/24 9:03 am Birads: Patient Class: 5 Shamir Rossi DO [address] [place] [address], [place], [address], [place] [facility] 02/29/2024 13:21:39 Problems Name Problem SNOMED Code Status Onset Date Resolution Date Notes Provider Name and Address Organization Details Recorded Time Bipolar disorder 20070725 Active 2023 Shamir Rossi DO [address] [place] [address], [place], [address], [place] [facility] 4 12:27:57 Sleep disorder 32973612 Active 2023 Shamir Rossi DO [address] [place] [address], [place], [address], [place] [facility] 4 12:28:13 Nausea and vomiting 60713601 Active 2023 Mounika Linares NP [address] [place] [address], [place], [address], [place] [facility] 4 15:06:07 Hypothyroidism 22317854 Active 2023 Shamir Rossi DO [address] [place] [address], [place], [address], [place] [facility] 4 11:01:52 Obstructive sleep apnea syndrome 78548083 Active 2023 Shamir Rossi DO [address] [place] [address], [place], [address], [place] [facility] 4 11:01:55 Cystic dilatation of common bile duct 502033761 Active 2023 Shamir Rossi DO [address] [place] [address] [address], [place], [address], [place] [facility] 4 11:01:58 Chronic kidney disease stage 3 843553296 Active 2023 Shamir Rossi DO [address] [place] [address] [address], [place], [address], [place] [facility] 4 11:02:08 Adrenal adenoma 816897130 Active 2023 Shamir Rossi DO [address] [place] [address], [facility] [address], [place], [address], [place] [facility] 4 11:23:25 Anxiety 31666920 Active 2023 Mounika Linares, MANAGER NUCLEAR [address] [place] [address], [facility] [address], [place], [address], [place] [facility] 4 08:46:04 Migraine 33362713 Active 2023 Mounika Linares, MANAGER NUCLEAR [address] [place] [address], [facility] [address], [place], [address], [place] [facility] 4 11:41:31 Anemia of chronic disease 138674935 Active 2023 Shamir Rossi DO [address] [place] [address], [facility] [address], [place], [address], [place] [facility] 4 12:01:49 Body mass index 30+ - obesity 372653418 Active 2023 Shamir Rossi DO [address] [place] [address], [facility] [address], [place], [address], [place] [facility] 4 12:03:42 Cholelithiasis without obstruction 11936055 Active 2023 Shamir Rossi DO [address] [place] [address] [address], [place], [address], [place] [facility] 4 12:04:57 Problem Notes None recorded. Medical Equipment None Reported. Allergies Allergen ID Allergen Name Allergen Category Reaction Reaction Severity Criticality Documentation Date Start Date Code Code System Note Provider Name and Address Organization Details Recorded Time 5560 Levaquin medicatio n Not available Not available Not available 01/11/2024 43712 2 RxNorm [facility] 4 11:12:31 5561 Substance with sulfonami de structure and antibacte rial mechanism of action (substanc e) medicatio n Not available Not available Not available 01/11/2024 59017 8003 SNOMED Hilda fatima [place] [facility] 4 11:12:35 5562 Phenergan medicatio n Not available Not available Not available 01/11/2024 66381 8 RxNorm [facility] 4 11:13:07 Medications Name Sig Start Date Stop Date Status Note LastModified by Organization Details LastModified Time propranolol 80 mg tablet 1 tablet by mouth twice daily active Not Available Not Available No t Available Mylanta Maximum Strength 400 mg-400 mg-40 mg/5 mL oral suspension Take 20 mL 4 times a day by oral route for 5 days. 2023 active Not Available Not Available Not Avai lable lamotrigine 200 mg tablet 1 tblet by mouth twice daily active Not Available Not Available No t Available loperamide 2 mg capsule 1 capsule by mouth daily 05/08 completed Not Available Not Available Not Available tizanidine 4 mg tablet 1 tablet by mouth daily or prn 05/08 completed Not Available Not Available Not Available cephalexin 250 mg capsule 01/10 completed Not Available Not Available Not Available sucralfate 1 gram tablet 2.5 tablet by mmouth daily active Not Available Not Available No t Available ondansetron HCl 4 mg tablet 05/08 completed Not Available Not Available Not Available clonazepam 0.5 mg tablet TAKE 1 TABLET BY MOUTH TWICE A DAY NEEDED active Not Available Not Available No t Available clonazepam 1 mg tablet 01/10 completed Not Available Not Available Not Available Excedrin Migraine 250 mg-250 mg-65 mg tablet Take 1 tablet every day by oral route as needed for 30 days. 2023 active Not Available Not Available Not Avai lable potassium chloride ER 10 mEq tablet,exte nded release Take 1 tablet every day by oral route for 30 days. 2023 active Not Available Not Available Not Avai lable oxcarbazepi ne 300 mg tablet 01/10 completed Not Available Not Available Not Available trimethopri m 100 mg tablet 01/10 completed Not Available Not Available Not Available acyclovir 400 mg tablet 1 tablet by mouth daily active Not Available Not Available No t Available tramadol 50 mg tablet TAKE 2 TABLETS BY MOUTH DAILY AT 2PM FOR RESTLESS LEG SYNDROME active Not Available Not Available No t Available quetiapine 100 mg tablet 01/10 completed Not Available Not Available Not Available spironolact one 25 mg tablet 2 tablet by mouth daily or prn active Not Available Not Available No t Available pantoprazol e 20 mg tablet,thompson yed release 01/10 completed Not Available Not Available Not Available sumatriptan 6 mg/0.5 mL subcutaneou s solution active Not Available Not Available N ot Available ziprasidone 20 mg capsule 1 capsule by mouth daily active Not Available Not Available No t Available famotidine 20 mg tablet 01/10 completed Not Available Not Available Not Available Valium 2 mg tablet take 1 tablet po 30 - 60 minutes prior to MRI 2023 active Not Available Not Available Not Avai lable trazodone 100 mg tablet 1 tablet by mouth daily prn active Not Available Not Available No t Available dexamethaso ne 1 mg tablet 03/28 completed Not Available Not Available Not Available cephalexin 500 mg capsule 01/10 completed Not Available Not Available Not Available lidocaine 5 % topical patch prn active Not Available Not Available Not Available promethazin e 25 mg tablet 1 tablet by mouth daily or prn active Not Available Not Available No t Available levothyroxi ne 150 mcg tablet 1 tablet by mouth daily active Not Available Not Available No t Available ascorbic acid (vitamin C) 500 mg chewable tablet Take 1 tablet 3 times a day by oral route. active Not Available Not Available No t Available triamcinolo ne acetonide 0.025 % topical ointment 05/08 completed Not Available Not Available Not Available pramipexole 0.25 mg tablet 1 tablet by mouth daily active Not Available Not Available No t Available omeprazole 20 mg capsule,del ayed release TAKE 1 CAPSULE BY MOUTH TWICE A DAY active Not Available Not Available No t Available ziprasidone 40 mg capsule 01/10 completed Not Available Not Available Not Available ibuprofen 600 mg tablet active Not Available Not Available Not Available scopolamine 1 mg over 3 days transdermal patch APPLY 1 PATCH TOPICALLY BEHIND EAR EVERY 3 DAYS NEEDED FOR NAUSEA active Not Available Not Available No t Available ondansetron 4 mg disintegrat ing tablet Place 2 tablets 3 times a day by transling ual route as needed. active Not Available Not Available No t Available risperidone 1 mg tablet 01/10 completed Not Available Not Available Not Available diazepam 5 mg tablet 01/10 completed Not Available Not Available Not Available amoxicillin 500 mg-potjuleeiu m clavulanate 125 mg tablet 01/10 completed Not Available Not Available Not Available oxycodone 5 mg tablet TAKE 1 TABLET BY MOUTH EVERY 6 HOURS IF NEEDED FOR SEVERE PAIN FOR UP TO 3 DAYS 01/10 completed Not Available Not Available Not Available sumatriptan 6 mg/0.5 mL subcutaneou s pen injector Inject 0.5 mL every day by subcutane ous route as needed for 7 days, for migraine. 2023 active Not Available Not Available Not Avai lable potassium chloride ER 10 mEq tablet,exte nded release(par t/cryst) active Not Available Not Available Not Available escitalopra m 5 mg tablet 01/10 completed Not Available Not Available Not Available quetiapine 50 mg tablet 01/10 completed Not Available Not Available Not Available desvenlafax ine succinate ER 50 mg tablet,exte nded release 24 hr 01/10 completed Not Available Not Available Not Available diclofenac 1 % topical gel apply to affected area as needed for pain active Not Available Not Available No t Available desvenlafax ine succinate ER 25 mg tablet,exte nded release 24 hr 01/10 completed Not Available Not Available Not Available Vitals Date Recorded Body weight Body mass index (BMI) Body height Oxygen saturation Oxygen saturation in Arterial blood by Pulse oximetry Heart rate Systolic And Diastolic Provider Name and Address Organization Details Last Updated DateTime 4 57075.1 7 g 33.9 kg/m2 168.91 cm 98 % 98 % 73 /min 134/76 mm[Hg] Hilda hays [place] [facility] 4 11:24:45 Date Recorded Body height Heart rate Oxygen saturation Oxygen saturation in Arterial blood by Pulse oximetry Systolic And Diastolic Provider Name and Address Organization Details Last Updated DateTime 4 168.91 cm 81 /min 97 % 97 % 118/70 mm[Hg] Glory Rand RN [address] [facility], [facility] [address], [place], [address], [facility] 4 14:38:35 Date Recorded Body height Heart rate Oxygen saturation Oxygen saturation in Arterial blood by Pulse oximetry Systolic And Diastolic Provider Name and Address Organization Details Last Updated DateTime 4 168.91 cm 87 /min 98 % 98 % 138/78 mm[Hg] Glory Rand RN [address] [facility] [address], [place], [address], [facility] 4 10:51:43 Date Recorded Body height Body mass index (BMI) Body weight Oxygen saturation Oxygen saturation in Arterial blood by Pulse oximetry Heart rate Systolic And Diastolic Provider Name and Address Organization Details Last Updated DateTime 4 168.91 cm 34.2 kg/m2 46567.7 6 g 98 % 98 % 74 /min 130/64 mm[Hg] Isatu Rojas [facility] 4 11:06:58 Date Recorded Body height Body mass index (BMI) Body weight Oxygen saturation Oxygen saturation in Arterial blood by Pulse oximetry Heart rate Systolic And Diastolic Provider Name and Address Organization Details Last Updated DateTime 4 168.91 cm 34.2 kg/m2 21113.3 6 g 97 % 97 % 70 /min 134/66 mm[Hg] Hilda Ewing saúl [facility] 4 11:49:57 Social History Question Answer Notes LastModified by Organizat ion Details LastModified Time Tobacco Smoking Status Former Smoker Hilda Mims kushal, [facility] 01/11/2024 11:23:36 When Did You Quit Smoking? 1-5yearssinc elastcigaret te 4 Years [facility] Information not available 05/08/2024 Sex: Unknown Functional Status None recorded. Mental Status None recorded. Family History Nothing Reported. Medical History No medical history recorded. Gynecological HistoryNo gynecological history recorded. Obstetrics History GPAL:G 0 P 0 0 0 0 Immunizations Vaccine Type Date Status Note Provider Nam e and Address Organization Details Recorded Time COVID-19, mRNA, LNP-S, PF, 100 mcg/0.5mL dose or 50 mcg/0.25mL dose 1 completed Hilda Burlingham null, [place] [facility] 01/11/2024 11:10:26 COVID-19, mRNA, LNP-S, PF, 100 mcg/0.5mL dose or 50 mcg/0.25mL dose 1 completed Hilda Burlingham null, [place] [facility] 01/11/2024 11:10:26 Tdap 2 completed Hilda Burlingham null, [place] [facility] 01/11/2024 11:10:26 Influenza, high-dose, trivalent, PF 8 completed Hilda Burlingham null, [place] [facility] 01/11/2024 11:10:26 Influenza, split virus, trivalent, preservative 0 completed Hilda Burlingham null, [place] [facility] 01/11/2024 11:10:26 Influenza, split virus, trivalent, preservative 6 completed Hilda Burlingham null, [place] [facility] 01/11/2024 11:10:26 Influenza, split virus, trivalent, preservative 7 completed Hilda Burlingham null, [place] [facility] 01/11/2024 11:10:26 Influenza, split virus, trivalent, PF 7 completed Hilda Burlingham null, [place] [facility] 01/11/2024 11:10:26 Influenza, split virus, quadrivalent, PF 6 completed Hilda Burlingham null, [place] [facility] 01/11/2024 11:10:26 Past Encounters Encounter ID Performer Location Encounter Start Date Encounter Closed Date Diagnosis/Indication Diagnosis SNOMED-CT Code Diagnosis ICD10 Code Diagnosis Note [id number] Shamir Rossi DO Main Office [address] [place] [address] [address] [place] [address] 01/11/2024 10:33:43 01/11/2024 12:23:17 Bipolar disorder 07432828 F31.9 Sleep disorder 98566331 G47.9 [id number] Mounika Linares NP Main Office [address] [place] [address] [address] [place] [address] 02/04/2024 14:21:35 02/04/2024 15:21:58 Nausea and vomiting 16048414 R11.2 Likely her sensation and low BP (for her) is related to mild dehydratio n. Reviewed labs in [facility] and creatinine /BUN up a bit, although she does have CKD. Urine smaller volume but clear and pale in color. Advised her to push fluids. States she cannot afford any electrolyt e drinks, but can make her own with salt + sugar. Ok to use ondansetro n as below. Recommend take omeprazole daily as rx'd by ED Can use mylanta for indigestio n.If she cannot keep food or fluid down, or symptoms do not improve with increased hydration, suggest ED evaluation .EKG without any sign of ischemia or tachycardi a. [id number] Shamir Rossi DO Main Office [address] [place] [address] [address] [place] [address] 02/09/2024 10:43:44 02/09/2024 11:30:27 Chronic kidney disease stage 3 977288785 N18.30 Nausea and vomiting 1693 2000 R11.2 Cystic dil atation of common bile duct 591642088 K83.5 Bipolar disorder 8240426 4 F31.9 Obstructiv e sleep apnea syndrome 54005977 G47.33 Sleep disorder 91596326 G47.9 Hypothyroidism 62079096 E03.9 [id number] Shamir Rossi DO Main Office [address] [place] [address] [address] [place] [address] 03/13/2024 10:58:14 03/13/2024 11:37:36 Adrenal adenoma 545075260 D35.02 Chronic ki dney disease stage 3 024932185 N18.30 Uncontroll ed type 2 diabetes mellitus 225491258 E11.65 Cystic dil atation of common bile duct 066318630 K83.5 Pain in both feet 178752 4839 1382619 M79.672 Prolapsed lumbar intervertebral disc, L4-L5 1025520321 7106 M51.26 Obstructiv e sleep apnea syndrome 57534345 G47.33 [id number] Shamirady Rossi DO Main Office [address] [facility],[address] [place] [address] 05/08/2024 11:25:26 05/08/2024 12:08:36 Lumbar radiculopathy 025411967 M54.16 Adrenal adenoma 37360100 8 D35.02 Chronic ki dney disease stage 3 981930208 N18.30 Obstructiv e sleep apnea syndrome 48616982 G47.33 Anemia of chronic disease 327412348 D63.8 Chronic he adache disorder 502169253 G44.89 Body mass index 30+ - obesity 135066639 Z68.34 Bipolar disorder 9337884 4 F31.9 Cholelithi asis without obstruction 74809333 K80.20 Health Concerns Section Related Observation LastModified by Organization Detai ls LastModified Time None Recorded Concern Status LastModified by Organization Details LastModified Time None Recorded Advance Directives Directive None Recorded Payers Insurance Date Sequence Insurance Name Policy Number Policy Dodd Covered Member ID Dodd Member ID Guarantor Name 05/05/2024 1 [place] [employer] Hannah Robbins [id number] Hannah Robbins 04/18/2024 2 [place] [employer] Hannah Rosendo [id number] Hannah Robbins 05/05/2024 2 [place] [facility] Hannah A Robbins [id number] Hannah Robbins Notes Date Note Type Note Provider Name and Address Organization Details Recorded Time 01/11/2024 text/html Patient presents for new patient visit to establish primary care relationship. Shamir Rossi DO [address] [place] [address], [address], [place], [address], [place] [facility] 01/12/2024 09:14:07 02/04/2024 text/html She was initiall y booked for nursing visit but switched to provider visit due to complexity.Came in thinking BP is low. States today is low for her.Has some gallbladder issues, had CT scan this past weekend during ED visit which showed some common bile duct dilation. She was discharged with ondansetron. She states she has an appt with general surgeon in February.Feels nauseated. Feels like when you get dizzy when you lie down like when you smoke marijuana but I didn't my body felt unsafe but she was not .No palpitations.No vomiting, but took zofran.3 times today. Generally takes a lot of mylanta. Was prescribed omeprazole BID by ED, but she did not take it today or yesterday.Urine is smaller volume but pharmacy sales representative in color. No dysuria. No fever, chills. Mounika Linares, MANAGER NUCLEAR [address] [facility] [address], [facility] [place], [address], [facility] 02/04/2024 17:37:04 OBGyn Episode No OBEpisode recorded.
--- OUTSIDE RECORDS SUMMARY | 2025-03-08 13:07 | XMS_ITS | Patient Health Record ---
Author Organization [facility] Address [address] [place] [address] Care Team Providers Care Flamer Sealer Name Role Phone Lucas Escoto Primary Care Provider Reason For Referral No Information Plan Of Treatment No Information Insurance Providers Payer Name Payer Address Payer Phone Subscriber Number Group Number Insured Name Patient Relationship to Insured Coverage Start Date Coverage End Date [place] [employer] [address] [place] [address] [id number] Hannah Robbins Self - patient is the insured
[2025-03-08 13:21] VITALS: BP 119/57; PULSE 86; RESP 18; O2SAT 97; BMI 34.5
--- NOTE | 2025-03-08 13:21 | MHC.OFFVIS ---
Vital Signs 03/08/25 13:21 Height 5 ft 6 in Weight 214 lb BMI 34.5 BP 119/57 L Blood Pressure Location Lt brachial Position Sitting Respiration 18 Pulse 86 Pulse Source Pulse Oximeter Pulse Oximetry (%) 97 Oxygen Delivery Method Room Air Intake Visit Reasons: Lumbar foraminal stenosis Building Architect Required: No Allergies levofloxacin (From Levaquin) Allergy (Unknown, Unverified 03/08/25 13:25) Unknown promethazine (From Phenergan) Allergy (Unknown, Verified 03/08/25 13:25) BURNING PAIN Sulfa (Sulfonamide Antibiotics) Allergy (Unknown, Verified 03/08/25 13:25) Rash HPI Comments Details: Hannah is very pleasant 70 years old female who wants to be called Evette and who presents today in my office with complains on lower back pain with radiation into the right lower extremity. She also reports pain in bilateral lower extremities in the area of bilateral shins and in the area of bilateral feet. She stated that her pain started 5 years ago. She relates her pain to 2 falls and severe foraminal stenosis. Because of her pain she can not sleep normally can not do activities of daily living can not take care of herself can not function normal. Weather changes and motions aggravate her pain. Heat applications topical medicine and oral medication such as Tylenol and tramadol helps her pain. The pain is worse in the morning and afternoon. Early evening her pain gets better. In terms of tissue damage he reports her pain as shooting, stabbing, sharp, sore, hurting, aching, heavy, tiring, exhausting, punishing, radiating, piercing, called, freezing sensation. She reports numbness in the right lower extremity. She had multiple images at [facility] in [place]. She had MRI perform there less than 2 years ago. She had physical therapy which helps her pain significantly. She also tried chiropractic manipulations massage therapy acupuncture and hope him homeopathic treatment without any success. She received multiple injections by Dr. Jackson at [facility] she reports good results from those injections. Past medical history significant for mental illness hypertension headache kidney stones renal disease diabetes gout and arthritis. She is suffering from multiple psychiatric problems. She is taking multiple psychiatric medications. She also reports restless leg syndrome, however she was told that this is not a restless leg syndrome and rather akathisia. She also reports memory loss. She denies surgical history. She denies smoking cigarettes denies drinking alcohol drinks 1 cup of coffee in the morning and denies recreational drugs. Review of Systems Const All systems reviewed & are unremarkable except as noted in HPI and below ENT Reports Normal hearing present Neuro Reports Normal hearing present, Denies Abnormal speech present, Denies confusion and Denies Sensory deficit (Neuro) Psych Denies confusion Physical Exam Vital Signs: Last Vital Signs Pulse 86 03/08/25 13:21 Resp 18 03/08/25 13:21 BP 119/57 L 03/08/25 13:21 Pulse Ox 97 03/08/25 13:21 Oxygen Delivery Method Room Air 03/08/25 13:21 BMI result Body Mass Index 34.5 Const General: no acute distress; No confusion Nutritional Appearance: obese morbidly obese Orientation/consciousness: patient oriented x3 and No confusion Eyes General: appearance normal, both eyes and all related structures Pupils: Equal, round and reactive pupils present EOM: EOMs intact bilaterally Neck Neck: Yes full ROM Chest Chest palpation & inspection: normal inspection of the chest Resp Effort & Inspection: normal respiratory effort, able to speak in complete sentences, normal respiratory pattern, no audible wheezes and no cough Cardio Jugular venous distension: no JVD GI Inspection: Yes normal to inspection Back/Spine/Pelvis Other: Flexing forward and flexing backwards does not affect patient's pain. SLR is positive on the right and negative on the left. Barrie test is negative on the left. Denies tenderness on palpation in paraspinal spinal region lumbar spine. Neuro General: patient oriented x3, gait normal and No confusion Cranial nerves: Yes CN's II-XII intact bilaterally, Yes Equal, round and reactive pupils present, Yes Normal hearing present and Yes Ability to bilaterally elevate shoulders present Speech: No Abnormal speech present Gait exam (Neuro): Normal gait present Motor exam (neuro): 5/5 motor strength present throughout Sensory Exam: No Sensory deficit (Neuro) Extrem General: No pedal edema Psych Speech and movement: Normal speech and movement present Affect: normal affect Attitude: cooperative Thought process: Normal thought process present Thought content: Normal thought content present Insight: Good insight present (Psych) Judgement: Good judgement present (Psych) Assessment & Plan Assessment & Plan (1) Radiculopathy, lumbar region: Code(s): M54.16 - Radiculopathy, lumbar region Category: Medical (2) Spondylosis of lumbar region without myelopathy or radiculopathy: Code(s): M47.816 - Spondylosis without myelopathy or radiculopathy, lumbar region Category: Medical (3) Akathisia: Code(s): G25.71 - Drug induced akathisia Category: Medical (4) Chronic pain syndrome: Code(s): G89.4 - Chronic pain syndrome Category: Medical Plan The pain of this patient is most likely radiculopathic however I have no images to support this information. I will send the request for medical information release from [facility] to obtain MRI report. I also will send a request to [facility] pain management facility where was performing injections for this patient. I need to know the injections this patient received in the past. She reports akathisia and wants me to refer her to psychiatrist for the evaluation of akathisia. I will refer her to Dr. Slater for the evaluation. Apparently she also was prescribed tramadol with pramipexole for restless leg syndrome, I am not sure how tramadol is appropriate for this situation. She wants me to prescribe her ?some medications to help my pain ?. I think she wants me to prescribe opioid medications. However with history of memory loss I am not sure if any opioid mu agonists would be appropriate for this patient's case. I will send her for physical therapy she reported that in the past physical therapy helps her pain. After she will complete physical therapy and continue home exercise program she will visit me 1 month and we will discuss further options for her treatment. Orders: Orders PT Evaluation and Treatment Today M47.816 - Spondylosis without myelopathy or radiculopathy, lumbar region, M54.16 - Radiculopathy, lumbar region Referrals Psychiatry Referral G25.71 - Drug induced akathisia Coding Level of Care Code New Pt Level 3 (70078) Diagnoses Radiculopathy, lumbar region M54.16 Spondylosis of lumbar region without myelopathy or radiculopathy M47.816 Akathisia G25.71 Chronic pain syndrome G89.4
== END 2025-03-08 13:57 | disposition home or self-care (01) ==
LOC: HO.PMC 13:03
PROVIDERS: PCP Internal Medicine; Referring Provider Internal Medicine; Visit Provider Anesthesiology
DX: M54.16 Radiculopathy, lumbar region (principal); M47.816 Spondylosis without myelopathy or radiculopathy, lumbar region; G25.71 Drug induced akathisia; G89.4 Chronic pain syndrome
CPT/HCPCS: 99203

== ENCOUNTER → 2025-03-08 13:02 | Outpatient (BNVA) | payer MEDICARE, MEDICAID, SELFPAY | PROVIDERS: PCP Internal Medicine; Referring Provider Internal Medicine; Visit Provider Anesthesiology | DX: M54.16 Radiculopathy, lumbar region (principal); M47.816 Spondylosis without myelopathy or radiculopathy, lumbar region; G25.71 Drug induced akathisia; G89.4 Chronic pain syndrome | CPT/HCPCS: 99202 ==